=== PATIENT | male | born 1960 | race Caucasian/White ===

== ENCOUNTER 2022-02-08 16:20 | Emergency (ER) | payer MEDICARE ==
[2022-02-08] MEDS ORDERED: Sodium Chloride 0.9% 1000 ML 1,000 ML ONE (16:58)
[2022-02-08] MEDS ORDERED: Sodium Chloride 0.9% 1000 ML 1,000 ML IV SCH (17:00)
[2022-02-08 17:33] LABS: Absolute Neutrophil Ct (ANC) 2.04 x10^3/uL (1.4-6.9); Basophil (Absolute #) 0.04 x10^3/uL (0-0.4); Eosinophil % 5.5 % (0.00-5.0); Eosinophil (Absolute #) 0.18 x10^3/uL (0-0.5); Hematocrit 35.3 % (42-50); Lymphocyte (Absolute #) 0.62 x10^3/uL (1.0-4.6); Lymphocytes % 18.9 % (24.0-44.0); Mean Cell Volume 94.9 fL (78-100); Mean Corpuscular Hemoglobin 32.3 pg (26-32); Mean Platelet Volume 10.4 fL (7.5-11.0); Monocyte (Absolute #) 0.39 x10^3/uL (0.0-1.3); Monocytes % 11.9 % (0.0-12.0); Neutrophil % 62.2 % (36.0-66.0); Platelet Count 63 x10^3/uL (150-450); Red Blood Count 3.72 x10^6/uL (4.1-5.6); Red Cell Distribution Width 17.8 % (11.5-14.0); White Blood Count 3.3 x10^3/uL (4.0-10.5)
[2022-02-08 17:43] LABS: ALBUMIN 3.1 g/dL (3.5-5.0); ALKALINE PHOSPHATASE 153 U/L (38-126); ANION GAP 10.1 MEQ/L (5-15); BLOOD UREA NITROGEN 4 mg/dL (9-20); CHLORIDE 105 mmol/L (98-107); Calcium 8.6 mg/dL (8.4-10.2); Carbon Dioxide 23 mmol/L (22-30); Creatinine 1 0.53 mg/dL (0.66-1.25); EST GLOMERULAR FILTRATION RATE > 60.0 ML/MIN; Glucose 138 mg/dL (74-106); Potassium 3.5 mmol/L (3.5-5.1); SGOT/AST 48 U/L (17-59); SGPT/ALT 20 U/L (0-50); SODIUM 134 mmol/L (137-145); Total Protein 6.3 g/dL (6.3-8.2)
--- NOTE | 2022-02-08 17:43 | ERPHSYRPT ---
- History of Present Illness Time Seen by Provider: 02/08/22 16:23 Source: patient, EMS Exam Limitations: no limitations Patient Subjective Stated Complaint: Patient has no c/o. He denies any pain. Patient came from [facility] facility. [facility] staff report that patient has low sodium, low K+, and low BUN and is being sent to this hospital for evaluation. Triage Nursing Assessment: Patient is jaundiced. No SOB noted. Patient questioning why he needs to be at the hospital. Dressings noted to BUE; not removed at this time. Able to move BUE WNL without difficulties. Physician History: 61 years old male resident of residential with history of COPD, alcohol abuse, liver disease, hypertension, cardiomyopathy, GERD with esophagitis sent in ER for low potassium, sodium on lab work done yesterday. Potassium was 3.2 and so dium 129. Patient was recently admitted at [facility] with electrolyte abnormalities. Patient denies having any complaints. Denies any abdominal pain nausea vomiting diarrhea, chest pain palpitations or shortness of breath. Allergies/Adverse Reactions: codeine Allergy (Verified 02/08/22 16:28) Home Medications: Apixaban [Eliquis 2.5 mg Tablet] 1 tab PO BID 02/08/22 [History] Ascorbic Acid 500 mg [Vitamin C 500 MG] 1 tab PO DAILY 02/08/22 [History] Nestor/D3/Mag11/Zinc/Car Salesman/Bhavin/Bor [Caltrate 600+D Plus Tablet] 1 tab PO BID 02/08 [History] Folic Acid 1 tab PO DAILY 02/08/22 [History] L.acidoph,Paracasei, B.lactis [Probiotic] 1 cap PO DAILY 02/08/22 [History] Lactulose 15 ml PO TID 02/08/22 [History] Magnesium Oxide 400 mg [Mag-Ox 400] 1 tab PO DAILY 02/08/22 [History] Polyethylene Glycol 3350 17 gm [Miralax Powder 17GM PACKET] 17 g PO DAILY 02/08/22 [History] Potassium Chloride 20 meq PO BID 02/08/22 [History] Senna/Docusate Sodium Tab [Senokot-S Tablet] 1 tab PO BID 02/08/22 [History] Thiamine HCl 100 mg [Vitamin B-1 100 mg] 1 tab PO DAILY 02/08/22 [History] Hx Tetanus, Diphtheria Vaccination/Date Given: Yes Hx Influenza Vaccination/Date Given: Yes Hx Pneumococcal Vaccination/Date Given: Yes Immunizations Up to Date: Yes Travel Risk - International Travel Have you traveled outside of the country in past 3 weeks: No - Coronavirus Screening Are you exhibiting any of the following symptoms?: No Close contact with a COVID-19 positive Pt in past 14-21 Days: No - Vaccine Status Have you recieved a Covid-19 vaccination: Yes Vein Pumper: Unknown - Vaccination Dates Dates if Unknown: ? - Review of Systems Constitutional: No Symptoms Eyes: No Symptoms Ears, Nose, & Throat: No Symptoms Respiratory: Cough Cardiac: No Symptoms Abdominal/Gastrointestinal: No Symptoms Genitourinary Symptoms: No Symptoms Musculoskeletal: No Symptoms Skin: No Symptoms Neurological: No Symptoms Endocrine: No Symptoms Hematologic/Lymphatic: No Symptoms Immunological/Allergic: No Symptoms - Past Medical History Pertinent Past Medical History: Yes Cardiac History: Hypertension Respiratory History: COPD Musculoskeletal History: Fractures, Osteoarthritis GI Medical History: Cirrhosis, Esophageal Disorder, GERD Other Medical History: Right femur fracture, esophageal varices without bleeding, anemia, alcohol abuse, encephalopathy, cardiomyopathy, kidney failure - Past Surgical History Past Surgical History: Yes Musculoskeletal: Other - Social History Smoking Status: Current every day smoker How long have you smoked: "years" Exposure to second hand smoke: No Drug Use: none Patient Lives Alone: No ([facility]) - Nursing Vital Signs Nursing Vital Signs: Initial Vital Signs Temperature 97.6 F 02/08/22 16:30 Pulse Rate 60 02/08/22 16:30 Respiratory Rate 17 02/08/22 16:30 Blood Pressure 114/73 02/08/22 16:30 O2 Sat by Pulse Oximetry 100 02/08/22 16:30 Pain Scale Pain Intensity 3 - Physical Exam General Appearance: no apparent distress, alert Eye Exam: PERRL/EOMI Ears, Nose, Throat Exam: normal ENT inspection, pharynx normal Neck Exam: normal inspection, supple, full range of motion Respiratory Exam: normal breath sounds, lungs clear Cardiovascular Exam: regular rate/rhythm, normal heart sounds Gastrointestinal/Abdomen Exam: soft, normal bowel sounds, No tenderness Back Exam: normal inspection Extremity Exam: normal inspection, normal range of motion Neurologic Exam: alert, oriented x 3, cooperative, underliner II-XII nml as tested, normal mood/affect, sensation nml Skin Exam: normal color SpO2 Interpretation: normal SpO2: 100 O2 Delivery: Room Air - Course EKG Interpreted by Me: RATE ([id number]), Sinus Doe, NORMAL AXIS, NORMAL INTERVALS, NORMAL QRS Ordered Tests: Active Orders 24 hr Category Date Time Status Development Director STAT Care 02/08/22 16:34 Active EKG-ER Only STAT Care 02/08/22 16:32 Active IV Insertion STAT Care 02/08/22 16:32 Active CHEST 1 VIEW (PORTABLE) Stat Exams 02/08/22 16:33 Completed CBC W DIFF Stat Lab 02/08/22 16:32 Completed CMP Stat Lab 02/08/22 17:10 Completed MAG [MAGNESIUM] Stat Lab 02/08/22 17:10 Completed UA W/RFX CULTURE Stat Lab 02/08/22 Ordered Medication Summary Generic Name Dose Route Start Last Admin Trade Name Freq PRN Reason Stop Dose Admin Sodium Chloride 1,000 mls @ 100 mls/hr 02/08/22 17:00 02/08/22 17:01 Sodium Chloride 0.9% 1000 Ml IV 03/10/22 16:59 100 mls/hr .Q10H CONY Administration Lab/Rad Data: Laboratory Result Diagrams 02/08/22 16:32 02/08/22 17:10 Laboratory Results 02/08/22 02/08/22 02/08/22 Range/Units 17:10 17:10 16:32 WBC 3.3 L (4.0-10.5) x10^3/uL RBC 3.72 L (4.1-5.6) x10^6/uL Hgb 12.0 L (12.5-18.0) g/dL Hct 35.3 L (42-50) % MCV 94.9 (78-100) fL MCH 32.3 H (26-32) pg MCHC 34.0 (32-36) g/dL RDW 17.8 H (11.5-14.0) % Plt Count 63 L D (150-450) x10^3/uL MPV 10.4 (7.5-11.0) fL Gran % 62.2 (36.0-66.0) % Immature Gran % (Auto) 0.3 (0.00-0.4) % Nucleat RBC Rel Count 0.0 (0.00-0.1) % Eos # (Auto) 0.18 (0-0.5) x10^3/uL Immature Gran # (Auto) 0.01 (0.00-0.03) x10^3u/L Absolute Lymphs (auto) 0.62 L (1.0-4.6) x10^3/uL Absolute Monos (auto) 0.39 (0.0-1.3) x10^3/uL Absolute Nucleated RBC 0.00 (0.00-0.01) x10^3u/L Lymphocytes % 18.9 L (24.0-44.0) % Monocytes % 11.9 (0.0-12.0) % Eosinophils % 5.5 H (0.00-5.0) % Basophils % 1.2 (0.0-0.4) % Absolute Granulocytes 2.04 (1.4-6.9) x10^3/uL Basophils # 0.04 (0-0.4) x10^3/uL Sodium 134 L (137-145) mmol/L Potassium 3.5 (3.5-5.1) mmol/L Chloride 105 (98-107) mmol/L Carbon Dioxide 23 (22-30) mmol/L Anion Gap 10.1 (5-15) MEQ/L BUN 4 L (9-20) mg/dL Creatinine 0.53 L (0.66-1.25) mg/dL Estimated GFR > 60.0 ML/MIN Glucose 138 H (74-106) mg/dL Calcium 8.6 (8.4-10.2) mg/dL Magnesium 1.7 (1.6-2.3) mg/dL Total Bilirubin 3.70 H (0.2-1.3) mg/dL AST 48 (17-59) U/L ALT 20 (0-50) U/L Alkaline Phosphatase 153 H (38-126) U/L Serum Total Protein 6.3 (6.3-8.2) g/dL Albumin 3.1 L (3.5-5.0) g/dL - Progress Progress: re-examined Progress Note: 02/08/22 19:06 Patient remained asymptomatic throughout stay in the ER. Has a potassium of 3.5 which is improved and also sodium of 134 which is improved from 129 yesterday. White count is 3.3 which is low but improving as compared to 2.0 yesterday. Chest x-ray negative for any acute cardiopulmonary findings. EKG normal sinus with no ST elevation. Patient is not in any distress and denies any complaint. Is being sent back to residential 02/08/22 19:07 Counseled pt/family regarding: lab results, diagnosis, need for follow-up, rad results - Departure Departure Disposition: Home Clinical Impression: Electrolyte imbalance risk Condition: Stable Critical Care Time: No Referrals: DOCTOR,NO FAMILY [Primary Care Provider] - Follow up/PCP as directed Instructions: Dehydration, Adult (DC), Hypokalemia (DC) Additional Instructions: Follow-up with your primary care for reevaluation early next week. Keep yourself well-hydrated. Do not smoke. Continue with current medications. Return to ER for any worsening.
--- NOTE | 2022-02-08 17:47 | XRAY ---
Indication: Hypokalemia. Comparison: None Portable chest demonstrates COPD and incidental bilateral calcified granulomas. No focal infiltrate, consolidation, or large effusion. Heart not enlarged. Bony thorax intact with osteopenia, degenerative changes, old bilateral rib fractures, and right axillary hakeem dissection. Impression: Nonacute chest with chronic features.
[2022-02-08 19:28] VITALS: BP 125/86
[2022-02-08 20:02] LABS: Slide Review 1 YES
[2022-02-08 20:30] VITALS: PULSE 60; O2SAT 99
== END 2022-02-08 20:30 | disposition home or self-care (01) ==
LOC: ED 16:20
DX: E87.6 Hypokalemia (principal); E87.1 Hypo-osmolality and hyponatremia; J44.9 Chronic obstructive pulmonary disease, unspecified; I10 Essential (primary) hypertension; Z72.0 Tobacco use; Z79.01 Long term (current) use of anticoagulants; Z79.899 Other long term (current) drug therapy
CPT/HCPCS: 36000; 36415; 71045; 80053; 83735; 85025; 93005; 93041; 99284

== ENCOUNTER 2023-07-01 14:41 | Observation (INO) | payer MEDICARE ==
[2023-07-01] MEDS ORDERED: Sterile H2O 10 ml IJ ONE ×2 (15:03→21:50)
[2023-07-01] MEDS ORDERED: solu-MEDROL ONE ×2 (15:03→21:49)
[2023-07-01] MEDS ORDERED: DUONEB 0.5-3 MG/3 ml Neb IH ONE (15:04)
[2023-07-01] MEDS: solu-MEDROL 125 MG, Sterile H2O 10 ml 2 ML IV ONE (15:04)
[2023-07-01] MEDS: DUONEB 0.5-3 MG/3 ml Neb IH ONE (15:05)
[2023-07-01 15:28] LABS: Absolute Neutrophil Ct (ANC) 3.03 x10^3/uL (1.4-6.9); BASOPHIL % 0.3 % (0.0-0.4); Basophil (Absolute #) 0.01 x10^3/uL (0-0.4); Eosinophil (Absolute #) 0.04 x10^3/uL (0-0.5); Hematocrit 36.8 % (42-50); Hemoglobin 12.1 g/dL (12.5-18.0); IMMATURE GRAN # 0.02 x10^3u/L (0.00-0.03); IMMATURE GRAN % 0.5 % (0.00-0.4); Lymphocyte (Absolute #) 0.49 x10^3/uL (1.0-4.6); Lymphocytes % 12.3 % (24.0-44.0); Mean Cell Volume 93.4 fL (78-100); Mean Corpuscular Hemoglobin 30.7 pg (26-32); Mean Corpuscular Hgb Concent. 32.9 g/dL (32-36); Mean Platelet Volume 13.2 fL (7.5-11.0); Monocyte (Absolute #) 0.41 x10^3/uL (0.0-1.3); Monocytes % 10.3 % (0.0-12.0); Neutrophil % 75.6 % (36.0-66.0); Platelet Count 52 x10^3/uL (150-450); Red Blood Count 3.94 x10^6/uL (4.1-5.6); Red Cell Distribution Width 15.4 % (11.5-14.0)
[2023-07-01 15:43] LABS: ALBUMIN 3.7 g/dL (3.5-5.0); ANION GAP 12.9 MEQ/L (5-15); BILIRUBIN,TOTAL 2.2 mg/dL (0.2-1.3); Calcium 8.6 mg/dL (8.4-10.2); Creatinine 1 0.76 mg/dL (0.66-1.25); MAGNESIUM 1.7 mg/dL (1.6-2.3); Potassium 3.6 mmol/L (3.5-5.1)
[2023-07-01 16:04] LABS: Slide Review 1 YES
[2023-07-01 16:05] LABS: INFLUENZA B NEGATIVE (NEGATIVE); RESPIRATORY SYNCTIAL VIRUS NEGATIVE (NEGATIVE); SARS-CoV-2 Xpert Express NEGATIVE (NEGATIVE)
[2023-07-01 16:15] LABS: INFLUENZA A POSITIVE (NEGATIVE)
--- NOTE | 2023-07-01 16:21 | ERPHSYRPT ---
- History of Present Illness Time Seen by Provider: 07/01/23 15:00 Source: patient Exam Limitations: no limitations Patient Subjective Stated Complaint: Pt states "I have been coughing and short of breath for the past 4 days, I have been cold for the past three days and I have these spots on my arms and I was told I have cancer on my skin. Triage Nursing Assessment: Pt presented alert and oriented X 3, skin pwd. pt ambualtes with an upright steady gait, able to speak in clear full sentences. PT resting comfortably on the bed. Physician History: 62-year-old male presents to our ED with complaints of shortness of breath and a cough x 4 days. Patient has history of COPD. Patient states he has been feeling cold lately as well. No fever. No nausea or vomiting no rash no diarrhea. Patient states he has a history of skin cancer. Patient had a biopsy of his left dorsal forearm about a year ago. Patient states the wound is not healing as expected. Patient never followed up to find out the results. Per report patient has a history of alcoholism and alcoholic cirrhosis. Patient symptoms are mild to moderate in intensity. Activity worsens symptoms. Symptoms improved with rest. Patient is here with his niece. She reports that patient is homeless and she is currently housing and caring for him. Portions of this note were created with voice recognition technology. There may be grammatical, spelling, punctuation or sound alike errors Timing/Duration: day(s) (4 days) Activities at Onset: none Severity of Dyspnea-Max: moderate Severity of Dyspnea-Current: mild Possible Cause: no prior episodes Modifying Factors: Improves With: activity Associated Symptoms: cough, No chest pain/discomfort, No fever, No loss of appetite Allergies/Adverse Reactions: codeine Allergy (Verified 02/08/22 16:28) Home Medications: No Reportable Medications [No Reported Medications] 07/01/23 [History] Hx Tetanus, Diphtheria Vaccination/Date Given: No Hx Influenza Vaccination/Date Given: No Hx Pneumococcal Vaccination/Date Given: Yes Immunizations Up to Date: No Travel Risk - International Travel Have you traveled outside of the country in past 3 weeks: No - Coronavirus Screening Are you exhibiting any of the following symptoms?: Yes Symptoms: Cough: New Onset, Shortness of Breath Close contact with a COVID-19 positive Pt in past 14-21 Days: No - Vaccine Status Have you recieved a Covid-19 vaccination: Yes Field Geologist: Unknown - Vaccination Dates Dates if Unknown: ? - Review of Systems Constitutional: No Symptoms, No Fever, No Chills Eyes: No Symptoms Ears, Nose, & Throat: No Symptoms Respiratory: No Symptoms, No Cough, No Dyspnea Cardiac: No Symptoms, No Chest Pain, No Edema, No Syncope Abdominal/Gastrointestinal: No Symptoms, No Abdominal Pain, No Nausea, No Vomiting, No Diarrhea Genitourinary Symptoms: No Symptoms, No Dysuria Musculoskeletal: No Symptoms, No Back Pain, No Neck Pain Skin: No Rash Neurological: No Symptoms, No Dizziness, No Focal Weakness, No Sensory Changes Psychological: No Symptoms Endocrine: No Symptoms Hematologic/Lymphatic: No Symptoms Immunological/Allergic: No Symptoms All Other Systems: Reviewed and Negative - Past Medical History Pertinent Past Medical History: Yes Neurological History: No Pertinent History ENT History: No Pertinent History Cardiac History: Hypertension Respiratory History: COPD Endocrine Medical History: No Pertinent History Musculoskeletal History: Fibromyalgia, Fractures, Osteoarthritis GI Medical History: Cirrhosis, Esophageal Disorder, GERD Other Medical History: Right femur fracture, esophageal varices without bleeding, anemia, alcohol abuse, encephalopathy, cardiomyopathy, kidney failure - Past Surgical History Past Surgical History: Yes Musculoskeletal: Other Other Surgical History: skin cancer cut off. right hop surgery - Social History Smoking Status: Current every day smoker How long have you smoked: "years" Exposure to second hand smoke: No Drug Use: none Patient Lives Alone: No ([facility]) - Nursing Vital Signs Nursing Vital Signs: Initial Vital Signs Temperature 98.8 F 07/01/23 14:42 Pulse Rate 68 07/01/23 14:42 Respiratory Rate 24 07/01/23 14:42 Blood Pressure 140/69 07/01/23 14:42 O2 Sat by Pulse Oximetry 96 07/01/23 14:42 Pain Scale Pain Intensity 0 - Physical Exam General Appearance: no apparent distress, alert Eye Exam: PERRL/EOMI Ears, Nose, Throat Exam: normal ENT inspection, normal pharynx Neck Exam: normal inspection, supple Respiratory Exam: diminished breath sounds, rhonchi, wheezing Cardiovascular/Chest Exam: normal heart sounds, regular rate/rhythm Abdominal/Gastrointestinal Exam: soft, No tenderness, No distention, No mass Extremity Exam: non-tender, normal range of motion, normal inspection, no calf tenderness, no pedal edema Neurologic Exam: alert, oriented x 3, cooperative, system safety manager II-XII nml as tested, sensation nml, No motor deficits Skin Exam: normal color, warm, No dry Lymphatic Exam: No adenopathy SpO2 Interpretation: normal SpO2: 96 O2 Delivery: Room Air - Course Nursing assessment & vital signs reviewed: Yes EKG Interpreted by Me: RATE ([id number]), Sinus Rhythm, NORMAL AXIS, NORMAL INTERVALS - CT Exams Chest CT Interpretation: Tele-radiologist Report (No comps negative PE. Emphysema and old granulomatous disease. No acute appearing T7-T9 fractures and old T12 fracture. Cirrhotic liver and 15.8 cm splenomegaly) Ordered Tests: Active Orders 24 hr Category Date Time Status Hiv Nurse STAT Care 07/01/23 14:58 Active EKG-ER Only STAT Care 07/01/23 14:57 Active IV Insertion STAT Care 07/01/23 14:57 Active Pulse Oximetry (ED) STAT Care 07/01/23 14:57 Active CHEST WITH CONTRAST [CT] Stat Exams 07/01/23 15:58 Taken BLOOD CULTURE Stat Lab 07/01/23 15:20 Received CBC W DIFF Stat Lab 07/01/23 15:12 Completed CMP Stat Lab 07/01/23 15:12 Completed CULTURE,URINE Stat Lab 07/01/23 17:57 Received D-DIMER QUANTITATIVE Stat Lab 07/01/23 15:12 Completed MAGNESIUM Stat Lab 07/01/23 15:12 Completed TROPONIN Q4H Lab 07/01/23 15:12 Completed TROPONIN Q4H Lab 07/01/23 19:00 Received TROPONIN Q4H Lab 07/01/23 23:00 Ordered UA W/RFX UR CULTURE Stat Lab 07/01/23 17:57 Completed Respiratory Therapy Assessment DAILY RT 07/01/23 15:08 Active Transfer Order Routine Transfer 07/01/23 Ordered Medication Summary Discontinued Medications Generic Name Dose Route Start Last Admin Trade Name Freq PRN Reason Stop Dose Admin Albuterol/Ipratropium 3 ml 07/01/23 14:59 07/01/23 15:05 Ipratropium/Albuterol Sulfate 3 Ml Ampul.Neb IH 07/01/23 15:00 3 ml STAT ONE Administration Albuterol/Ipratropium Confirm 07/01/23 15:04 Ipratropium/Albuterol Sulfate 3 Ml Ampul.Neb Administered 07/01/23 15:05 Dose 3 ml IH .STK-MED ONE Methylprednisolone Sodium 0 mg 07/01/23 14:59 07/01/23 15:04 Succinate 125 mg/ Sterile IV 07/01/23 15:00 125 mg Water 2 ml STAT ONE Administration Ceftriaxone Sodium/Dextrose 2 g in 50 mls @ 100 mls/hr 07/01/23 16:24 07/01/23 17:08 Rocephin 2 Gm-D5w 50ml Bag IV 07/01/23 16:53 Infused STAT STA Infusion Azithromycin 500 mg in 250 mls @ 250 mls/hr 07/01/23 16:24 07/01/23 18:44 Zithromax 500 Mg/ 250 Ml Nacl Premix IV 07/01/23 17:23 Infused STAT STA Infusion Ceftriaxone Sodium/Dextrose Confirm 07/01/23 16:37 Rocephin 2 Gm-D5w 50ml Bag Administered 07/01/23 16:38 Dose 2 g in 50 mls @ ud IV .STK-MED ONE Azithromycin Confirm 07/01/23 17:41 Zithromax 500 Mg/ 250 Ml Nacl Premix Administered 07/01/23 17:42 Dose 500 mg in 250 mls @ ud IV .STK-MED ONE Methylprednisolone Sodium Succinate Confirm 07/01/23 15:03 Methylprednis Sod Succ 125 Mg/2 Ml Vial Administered 07/01/23 15:04 Dose 125 mg .ROUTE .STK-MED ONE Sterile Water Confirm 07/01/23 15:03 Water For Injection,Sterile 10 Ml Vial Administered 07/01/23 15:04 Dose 10 ml IJ .STK-MED ONE Lab/Rad Data: Laboratory Result Diagrams 07/01/23 15:12 07/01/23 15:12 Laboratory Results 07/01/23 07/01/23 07/01/23 Range/Units 17:57 15:22 15:12 WBC (4.0-10.5) x10^3/uL RBC (4.1-5.6) x10^6/uL Hgb (12.5-18.0) g/dL Hct (42-50) % MCV (78-100) fL MCH (26-32) pg MCHC (32-36) g/dL RDW (11.5-14.0) % Plt Count (150-450) x10^3/uL MPV (7.5-11.0) fL Gran % (36.0-66.0) % Immature Gran % (Auto) (0.00-0.4) % Nucleat RBC Rel Count (0.00-0.1) % Eos # (Auto) (0-0.5) x10^3/uL Immature Gran # (Auto) (0.00-0.03) x10^3u/L Absolute Lymphs (auto) (1.0-4.6) x10^3/uL Absolute Monos (auto) (0.0-1.3) x10^3/uL Absolute Nucleated RBC (0.00-0.01) x10^3u/L Lymphocytes % (24.0-44.0) % Monocytes % (0.0-12.0) % Eosinophils % (0.00-5.0) % Basophils % (0.0-0.4) % Absolute Granulocytes (1.4-6.9) x10^3/uL Basophils # (0-0.4) x10^3/uL D-Dimer (0.0-0.50) mg/L Sodium (137-145) mmol/L Potassium (3.5-5.1) mmol/L Chloride (98-107) mmol/L Carbon Dioxide (22-30) mmol/L Anion Gap (5-15) MEQ/L BUN (9-20) mg/dL Creatinine (0.66-1.25) mg/dL Estimated GFR ML/MIN Glucose (74-106) mg/dL Calcium (8.4-10.2) mg/dL Magnesium (1.6-2.3) mg/dL Total Bilirubin (0.2-1.3) mg/dL AST (17-59) U/L ALT (0-50) U/L Alkaline Phosphatase (38-126) U/L Troponin I < 0.012 (0.000-0.034) ng/mL Serum Total Protein (6.3-8.2) g/dL Albumin (3.5-5.0) g/dL Urine Color Dark Yellow (Yellow) Urine Appearance Clear (Clear) Urine pH 6.0 (4.6-8.0) Ur Specific [place] 1.025 (1.005-1.030) Urine Protein 300 A (Negative) Urine Glucose (UA) Negative (Negative) mg/dL Urine Ketones Trace A (Negative) Urine Blood Moderate A (Negative) Urine Nitrite Negative (Negative) Urine Bilirubin Negative (Negative) Urine Urobilinogen 1.0 A (0.2) mg/dL Ur Leukocyte Esterase Negative (Negative) U Hyaline Cast (Auto) NONE SEEN (0-2) /LPF Urine Microscopic RBC 21-50 A (0-5) /HPF Urine Microscopic WBC 0-2 (0-5) /HPF Ur Epithelial Cells None Seen (None Seen) /HPF Urine Bacteria None Seen (None Seen) /HPF Urine Culture Reflexed YES (NO) Influenza Type A Ag POSITIVE A (NEGATIVE) Influenza Type B Ag NEGATIVE (NEGATIVE) RSV (PCR) NEGATIVE (NEGATIVE) SARS-CoV-2 (PCR) NEGATIVE (NEGATIVE) Slides for Path Review 07/01/23 07/01/23 07/01/23 Range/Units 15:12 15:12 15:12 WBC 4.0 (4.0-10.5) x10^3/uL RBC 3.94 L (4.1-5.6) x10^6/uL Hgb 12.1 L (12.5-18.0) g/dL Hct 36.8 L (42-50) % MCV 93.4 (78-100) fL MCH 30.7 (26-32) pg MCHC 32.9 (32-36) g/dL RDW 15.4 H (11.5-14.0) % Plt Count 52 L (150-450) x10^3/uL MPV 13.2 H (7.5-11.0) fL Gran % 75.6 H (36.0-66.0) % Immature Gran % (Auto) 0.5 H (0.00-0.4) % Nucleat RBC Rel Count 0.0 (0.00-0.1) % Eos # (Auto) 0.04 (0-0.5) x10^3/uL Immature Gran # (Auto) 0.02 (0.00-0.03) x10^3u/L Absolute Lymphs (auto) 0.49 L (1.0-4.6) x10^3/uL Absolute Monos (auto) 0.41 (0.0-1.3) x10^3/uL Absolute Nucleated RBC 0.00 (0.00-0.01) x10^3u/L Lymphocytes % 12.3 L (24.0-44.0) % Monocytes % 10.3 (0.0-12.0) % Eosinophils % 1.0 (0.00-5.0) % Basophils % 0.3 (0.0-0.4) % Absolute Granulocytes 3.03 (1.4-6.9) x10^3/uL Basophils # 0.01 (0-0.4) x10^3/uL D-Dimer 7.67 H* (0.0-0.50) mg/L Sodium 135 L (137-145) mmol/L Potassium 3.6 (3.5-5.1) mmol/L Chloride 110 H (98-107) mmol/L Carbon Dioxide 16 L* (22-30) mmol/L Anion Gap 12.9 (5-15) MEQ/L BUN 9 (9-20) mg/dL Creatinine 0.76 (0.66-1.25) mg/dL Estimated GFR 101.0 ML/MIN Glucose 87 (74-106) mg/dL Calcium 8.6 (8.4-10.2) mg/dL Magnesium 1.7 (1.6-2.3) mg/dL Total Bilirubin 2.20 H (0.2-1.3) mg/dL AST 37 (17-59) U/L ALT 17 (0-50) U/L Alkaline Phosphatase 99 (38-126) U/L Troponin I (0.000-0.034) ng/mL Serum Total Protein 7.0 (6.3-8.2) g/dL Albumin 3.7 (3.5-5.0) g/dL Urine Color (Yellow) Urine Appearance (Clear) Urine pH (4.6-8.0) Ur Specific [place] (1.005-1.030) Urine Protein (Negative) Urine Glucose (UA) (Negative) mg/dL Urine Ketones (Negative) Urine Blood (Negative) Urine Nitrite (Negative) Urine Bilirubin (Negative) Urine Urobilinogen (0.2) mg/dL Ur Leukocyte Esterase (Negative) U Hyaline Cast (Auto) (0-2) /LPF Urine Microscopic RBC (0-5) /HPF Urine Microscopic WBC (0-5) /HPF Ur Epithelial Cells (None Seen) /HPF Urine Bacteria (None Seen) /HPF Urine Culture Reflexed (NO) Influenza Type A Ag (NEGATIVE) Influenza Type B Ag (NEGATIVE) RSV (PCR) (NEGATIVE) SARS-CoV-2 (PCR) (NEGATIVE) Slides for Path Review YES - Progress Progress: improved Air Movement: good Progress Note: 62-year-old male with a history of COPD, alcoholic liver cirrhosis drinks vodka daily presents to our ED for evaluation of shortness of breath and cold chills. Physical exam reveals diminished, coarse breath sounds with wheezing; additionally patient had a biopsy of the dorsal aspect of his left arm 1 year ago. There is still a residual wound that tends to bleed. Patient never followed up regarding the results of this biopsy. Patient does not recall the doctor's name to perform the biopsy. Patient's niece is at the bedside. She reports that patient is homeless and she is currently helping him with this situation. 07/01/23 19:04 Workup reveals a thrombocytopenia, elevated total bili urinalysis reveals a proteinuria and hematuria. Viral panel of reveals influenza A. D-dimer positive CTA chest negative for PE. Case discussed with Dr. Stewart who accepts admission at 6:48 PM. Plan of care discussed with patient. He agrees to admission to [facility] for further evaluation and treatment. Portions of this note were created with voice recognition technology. There may be grammatical, spelling, punctuation or sound alike errors Complexity problem addressed is moderate acute complicated No critical care time Complex of data reviewed and analyzed is extensive. Test ordered test reviewed. Results analyzed and correlated clinically with history and physical examination. Management discussed with hospitalist accepts patient to observation Risk of complication and a risk morbidity/mortality of patient management is high. Patient requires hospitalization for further evaluation and treatment. Vital stable. Time spent to admit patient is approximately 30 minutes. Plan of care established for shared decision making. No social determinants of health present impede follow-up. Portions of this note were created with voice recognition technology. There may be grammatical, spelling, punctuation or sound alike errors 07/01/23 19:08 Blood Culture(s) Obtained: Yes Antibiotics given: Yes Discussed with Dr.: Serrano (Case discussed with Dr. Vilchis at 6:48 PM.) Counseled pt/family regarding: lab results, diagnosis - Departure Departure Disposition: Observation Clinical Impression: Influenza A, T7-T9 fracture, Splenomegaly, Cirrhotic liver, Emphysema lung, COPD exacerbation, Shortness of breath Condition: Stable Critical Care Time: No Referrals: RADHA APONTE MD [Primary Care Provider] - Follow up/PCP as directed Instructions: Chronic Obstructive Pulmonary Disease
[2023-07-01] MEDS ORDERED: ROCEPHIN 2 Gm-D5w 50ML BAG** 2 G/50 ML IVPB IV ONE (16:37)
[2023-07-01] MEDS: ROCEPHIN 2 Gm-D5w 50ML BAG** 2 G/50 ML IVPB IV STA (16:37)
[2023-07-01] MEDS ORDERED: Zithromax 500 MG/ 250 ML NaCl Premix 500 MG/250 ML IVPB IV ONE (17:41)
[2023-07-01] MEDS: Zithromax 500 MG/ 250 ML NaCl Premix 500 MG/250 ML IVPB IV STA (17:42)
[2023-07-01 18:13] LABS: Appearance Clear (Clear); Bacteria None Seen /HPF (None Seen); Bilirubin Negative (Negative); Blood Moderate (Negative); Epithelial Cells None Seen /HPF (None Seen); Glucose, Urine Negative (Negative); Hyaline Casts NONE SEEN /LPF (0-2); Ketones Trace (Negative); Leukocyte Esterase Negative (Negative); Nitrite Negative (Negative); Protein,Urine Dip 300 (Negative); RBC 21-50 /HPF (0-5); Specific Gravity 1.025 (1.005-1.030); WBC 0-2 /HPF (0-5)
[2023-07-01 18:14] LABS: ADD URINE CULTURE? YES (NO)
[2023-07-01] MEDS ORDERED: Ativan 2 MG/1 ML VIAL IV PRN (20:46)
[2023-07-01] MEDS ORDERED: Ativan 1 MG PO PRN ×2 (20:46)
--- NOTE | 2023-07-01 20:57 | PCM.HP ---
History of Present Illness - Chief Complaint Chief Complaint: COPD exacerbation, thoracic spine fractures History of Present Illness: Mr. Mckeon is a 62 year old male with a past medical history significant for significant EtOH use (about half a pint a day) with cirrhosis, COPD and hypertension who presents to the hospital with complaints of fever, chills and not feeling well for about four days. He reports poor appetite, has not been eating/drinking well and was found to be positive for influenza in the ER. He has been recommended for admission. He is currently resting in bed, awake/alert. No chest pain or shortness of breath. No productive cough. Initial labs were notable for a sodium of 135 and bicarb 16. - Review of Systems Constitutional: Fatigue, Lethargy, Malaise, No Fever, No Chills Eyes: No Vision Changes Ears, Nose, & Throat: No Nose Discharge, No Sinus Drainage Respiratory: Cough, Wheezing, No Orthopnea Cardiac: No Chest Pain, No Edema, No Palpitations Abdominal/Gastrointestinal: Appetite Changes, No Abdominal Pain, No Nausea, No Vomiting, No Diarrhea Genitourinary Symptoms: No Dysuria, No Frequency, No Hematuria Musculoskeletal: No Arthralgias, No Back Pain, No Neck Pain Skin: No Rash Neurological: No Dizziness, No Focal Weakness Psychological: Alcohol Abuse Endocrine: No Polyuria, No Polydipsia Hematologic/Lymphatic: No Anemia, No Blood Clots Medications & Allergies Home Medications: Home Medication List No Reportable Medications [No Reported Medications] 07/01/23 [History Confirmed 07/01/23] Allergies/Adverse Reactions: Allergies Allergy/AdvReac Type Severity Reaction Status Date / Time codeine Allergy Verified 07/01/23 19:54 - Past Medical History Past Medical History: Yes Neurological History: No Pertinent History ENT History: No Pertinent History Cardiac History: Hypertension Respiratory History: COPD Endocrine Medical History: No Pertinent History Musculoskelatal History: Fibromyalgia, Fractures, Osteoarthritis GI Medical History: Cirrhosis, Esophageal Disorder, GERD Comment: Right femur fracture, esophageal varices without bleeding, anemia, alcohol abuse, encephalopathy, cardiomyopathy, kidney failure, skin cancer - Past Surgical History Past Surgical History: Yes Neuro Surgical History: No Pertinent History Cardiac History: No Pertinent History Respiratory Surgery: No Pertinent History GI Surgical History: No Pertinent History Genitourinary Surgical Hx: No Pertinent History Musculskeletal Surgical Hx: Other Male Surgical History: No Pertinent History Other Surgical History: skin cancer cut off. right hip surgery - Social History Smoking Status: Current every day smoker How long have you smoked: 40 years Exposure to second hand smoke: No Alcohol: Daily Drug Use: none - Physical Exam Vital Signs: Vital Signs - 24 hr Temp Pulse Resp BP BP Pulse Ox 07/01/23 20:03 97.3 F 68 18 151/74 96 07/01/23 19:17 96 07/01/23 19:01 70 20 106/54 96 07/01/23 18:45 72 15 129/72 95 07/01/23 18:30 72 25 H 129/76 96 07/01/23 18:15 71 20 124/67 96 07/01/23 18:00 75 24 130/69 96 07/01/23 17:47 78 22 145/73 97 07/01/23 17:00 85 128/67 07/01/23 16:45 70 23 125/66 95 07/01/23 16:30 81 28 H 126/64 97 07/01/23 16:15 77 26 H 110/74 94 L 07/01/23 16:00 74 31 H 119/77 96 07/01/23 15:45 82 29 H 127/59 97 07/01/23 15:30 74 24 115/86 97 07/01/23 15:08 68 19 97 07/01/23 15:02 98 07/01/23 15:00 73 28 H 128/64 96 07/01/23 14:45 61 20 134/71 95 07/01/23 14:42 98.8 F 68 24 140/69 98 General Appearance: no apparent distress Neurologic Exam: alert Neck Exam: supple, full range of motion Respiratory Exam: No respiratory distress, No wheezing, No stridor Cardiovascular Exam: regular rate/rhythm Gastrointestinal/Abdomen Exam: soft Extremity Exam: No pedal edema, No swelling, No tenderness Skin Exam: No dry, No rash Results - Labs Lab/Micro Results: Lab Results-Last 24 Hours 07/01/23 07/01/23 07/01/23 Range/Units 15:12 15:12 15:12 WBC 4.0 (4.0-10.5) x10^3/uL RBC 3.94 L (4.1-5.6) x10^6/uL Hgb 12.1 L (12.5-18.0) g/dL Hct 36.8 L (42-50) % MCV 93.4 (78-100) fL MCH 30.7 (26-32) pg MCHC 32.9 (32-36) g/dL RDW 15.4 H (11.5-14.0) % Plt Count 52 L (150-450) x10^3/uL MPV 13.2 H (7.5-11.0) fL Gran % 75.6 H (36.0-66.0) % Immature Gran % (Auto) 0.5 H (0.00-0.4) % Nucleat RBC Rel Count 0.0 (0.00-0.1) % Eos # (Auto) 0.04 (0-0.5) x10^3/uL Immature Gran # (Auto) 0.02 (0.00-0.03) x10^3u/L Absolute Lymphs (auto) 0.49 L (1.0-4.6) x10^3/uL Absolute Monos (auto) 0.41 (0.0-1.3) x10^3/uL Absolute Nucleated RBC 0.00 (0.00-0.01) x10^3u/L Lymphocytes % 12.3 L (24.0-44.0) % Monocytes % 10.3 (0.0-12.0) % Eosinophils % 1.0 (0.00-5.0) % Basophils % 0.3 (0.0-0.4) % Absolute Granulocytes 3.03 (1.4-6.9) x10^3/uL Basophils # 0.01 (0-0.4) x10^3/uL D-Dimer 7.67 H* (0.0-0.50) mg/L Sodium 135 L (137-145) mmol/L Potassium 3.6 (3.5-5.1) mmol/L Chloride 110 H (98-107) mmol/L Carbon Dioxide 16 L* (22-30) mmol/L Anion Gap 12.9 (5-15) MEQ/L BUN 9 (9-20) mg/dL Creatinine 0.76 (0.66-1.25) mg/dL Estimated GFR 101.0 ML/MIN Glucose 87 (74-106) mg/dL Calcium 8.6 (8.4-10.2) mg/dL Magnesium 1.7 (1.6-2.3) mg/dL Total Bilirubin 2.20 H (0.2-1.3) mg/dL AST 37 (17-59) U/L ALT 17 (0-50) U/L Alkaline Phosphatase 99 (38-126) U/L Troponin I (0.000-0.034) ng/mL Serum Total Protein 7.0 (6.3-8.2) g/dL Albumin 3.7 (3.5-5.0) g/dL Urine Color (Yellow) Urine Appearance (Clear) Urine pH (4.6-8.0) Ur Specific [place] (1.005-1.030) Urine Protein (Negative) Urine Glucose (UA) (Negative) mg/dL Urine Ketones (Negative) Urine Blood (Negative) Urine Nitrite (Negative) Urine Bilirubin (Negative) Urine Urobilinogen (0.2) mg/dL Ur Leukocyte Esterase (Negative) U Hyaline Cast (Auto) (0-2) /LPF Urine Microscopic RBC (0-5) /HPF Urine Microscopic WBC (0-5) /HPF Ur Epithelial Cells (None Seen) /HPF Urine Bacteria (None Seen) /HPF Urine Culture Reflexed (NO) Influenza Type A Ag (NEGATIVE) Influenza Type B Ag (NEGATIVE) RSV (PCR) (NEGATIVE) SARS-CoV-2 (PCR) (NEGATIVE) Slides for Path Review YES 07/01/23 07/01/23 07/01/23 Range/Units 15:12 15:22 17:57 WBC (4.0-10.5) x10^3/uL RBC (4.1-5.6) x10^6/uL Hgb (12.5-18.0) g/dL Hct (42-50) % MCV (78-100) fL MCH (26-32) pg MCHC (32-36) g/dL RDW (11.5-14.0) % Plt Count (150-450) x10^3/uL MPV (7.5-11.0) fL Gran % (36.0-66.0) % Immature Gran % (Auto) (0.00-0.4) % Nucleat RBC Rel Count (0.00-0.1) % Eos # (Auto) (0-0.5) x10^3/uL Immature Gran # (Auto) (0.00-0.03) x10^3u/L Absolute Lymphs (auto) (1.0-4.6) x10^3/uL Absolute Monos (auto) (0.0-1.3) x10^3/uL Absolute Nucleated RBC (0.00-0.01) x10^3u/L Lymphocytes % (24.0-44.0) % Monocytes % (0.0-12.0) % Eosinophils % (0.00-5.0) % Basophils % (0.0-0.4) % Absolute Granulocytes (1.4-6.9) x10^3/uL Basophils # (0-0.4) x10^3/uL D-Dimer (0.0-0.50) mg/L Sodium (137-145) mmol/L Potassium (3.5-5.1) mmol/L Chloride (98-107) mmol/L Carbon Dioxide (22-30) mmol/L Anion Gap (5-15) MEQ/L BUN (9-20) mg/dL Creatinine (0.66-1.25) mg/dL Estimated GFR ML/MIN Glucose (74-106) mg/dL Calcium (8.4-10.2) mg/dL Magnesium (1.6-2.3) mg/dL Total Bilirubin (0.2-1.3) mg/dL AST (17-59) U/L ALT (0-50) U/L Alkaline Phosphatase (38-126) U/L Troponin I < 0.012 (0.000-0.034) ng/mL Serum Total Protein (6.3-8.2) g/dL Albumin (3.5-5.0) g/dL Urine Color Dark Yellow (Yellow) Urine Appearance Clear (Clear) Urine pH 6.0 (4.6-8.0) Ur Specific [place] 1.025 (1.005-1.030) Urine Protein 300 A (Negative) Urine Glucose (UA) Negative (Negative) mg/dL Urine Ketones Trace A (Negative) Urine Blood Moderate A (Negative) Urine Nitrite Negative (Negative) Urine Bilirubin Negative (Negative) Urine Urobilinogen 1.0 A (0.2) mg/dL Ur Leukocyte Esterase Negative (Negative) U Hyaline Cast (Auto) NONE SEEN (0-2) /LPF Urine Microscopic RBC 21-50 A (0-5) /HPF Urine Microscopic WBC 0-2 (0-5) /HPF Ur Epithelial Cells None Seen (None Seen) /HPF Urine Bacteria None Seen (None Seen) /HPF Urine Culture Reflexed YES (NO) Influenza Type A Ag POSITIVE A (NEGATIVE) Influenza Type B Ag NEGATIVE (NEGATIVE) RSV (PCR) NEGATIVE (NEGATIVE) SARS-CoV-2 (PCR) NEGATIVE (NEGATIVE) Slides for Path Review 07/01/23 Range/Units 19:00 WBC (4.0-10.5) x10^3/uL RBC (4.1-5.6) x10^6/uL Hgb (12.5-18.0) g/dL Hct (42-50) % MCV (78-100) fL MCH (26-32) pg MCHC (32-36) g/dL RDW (11.5-14.0) % Plt Count (150-450) x10^3/uL MPV (7.5-11.0) fL Gran % (36.0-66.0) % Immature Gran % (Auto) (0.00-0.4) % Nucleat RBC Rel Count (0.00-0.1) % Eos # (Auto) (0-0.5) x10^3/uL Immature Gran # (Auto) (0.00-0.03) x10^3u/L Absolute Lymphs (auto) (1.0-4.6) x10^3/uL Absolute Monos (auto) (0.0-1.3) x10^3/uL Absolute Nucleated RBC (0.00-0.01) x10^3u/L Lymphocytes % (24.0-44.0) % Monocytes % (0.0-12.0) % Eosinophils % (0.00-5.0) % Basophils % (0.0-0.4) % Absolute Granulocytes (1.4-6.9) x10^3/uL Basophils # (0-0.4) x10^3/uL D-Dimer (0.0-0.50) mg/L Sodium (137-145) mmol/L Potassium (3.5-5.1) mmol/L Chloride (98-107) mmol/L Carbon Dioxide (22-30) mmol/L Anion Gap (5-15) MEQ/L BUN (9-20) mg/dL Creatinine (0.66-1.25) mg/dL Estimated GFR ML/MIN Glucose (74-106) mg/dL Calcium (8.4-10.2) mg/dL Magnesium (1.6-2.3) mg/dL Total Bilirubin (0.2-1.3) mg/dL AST (17-59) U/L ALT (0-50) U/L Alkaline Phosphatase (38-126) U/L Troponin I < 0.012 (0.000-0.034) ng/mL Serum Total Protein (6.3-8.2) g/dL Albumin (3.5-5.0) g/dL Urine Color (Yellow) Urine Appearance (Clear) Urine pH (4.6-8.0) Ur Specific [place] (1.005-1.030) Urine Protein (Negative) Urine Glucose (UA) (Negative) mg/dL Urine Ketones (Negative) Urine Blood (Negative) Urine Nitrite (Negative) Urine Bilirubin (Negative) Urine Urobilinogen (0.2) mg/dL Ur Leukocyte Esterase (Negative) U Hyaline Cast (Auto) (0-2) /LPF Urine Microscopic RBC (0-5) /HPF Urine Microscopic WBC (0-5) /HPF Ur Epithelial Cells (None Seen) /HPF Urine Bacteria (None Seen) /HPF Urine Culture Reflexed (NO) Influenza Type A Ag (NEGATIVE) Influenza Type B Ag (NEGATIVE) RSV (PCR) (NEGATIVE) SARS-CoV-2 (PCR) (NEGATIVE) Slides for Path Review - Radiology Impressions Radiology Exams & Impressions: Radiology Procedures Category Date Time Status CHEST WITH CONTRAST [CT] Stat Exams 07/01/23 15:58 Taken - Other Procedures and Tests Respiratory Therapy 07/01/23 20:22 Smoking Cessation Education ONCE Assessment/Plan (1) Hyponatremia Current Visit: Yes Status: Acute Assessment & Plan: Likely from hypovolemia versus low solute intake from EtOH 1. Isotonic IVFs 2. Limit free water 3. Watch electrolytes closely Code(s): E87.1 - HYPO-OSMOLALITY AND HYPONATREMIA (2) Metabolic acidosis Current Visit: Yes Status: Acute Assessment & Plan: Likely from ketosis 1. Gentle bicarb drip 2. IVFs Code(s): E87.20 - ACIDOSIS, UNSPECIFIED (3) Alcohol abuse Current Visit: Yes Status: Acute Assessment & Plan: Drinks about 1/2 pint daily, at high risk for DT 1. CIWA 2. Ativan prn 3. EtOH cessation 4. Monitor for DTs Code(s): F10.10 - ALCOHOL ABUSE, UNCOMPLICATED (4) COPD exacerbation Current Visit: Yes Status: Acute Assessment & Plan: Likely from influenza 1. Duonebs 2. Solumedrol 3. O2 supplementation prn 4. Monitor O2 sats Code(s): J44.1 - CHRONIC OBSTRUCTIVE PULMONARY DISEASE W (ACUTE) EXACERBATION (5) Influenza A Current Visit: Yes Status: Acute Assessment & Plan: Positive for influenza A, no sick contacts reported 1. Respiratory isolation for flu 2. Tamiflu 75mg BID 3. Monitor O2 sats Code(s): J10.1 - FLU DUE TO OTH IDENT INFLUENZA VIRUS W OTH RESP MANIFEST Telemedicine Encounter - Telemedicine Encounter Telemedicine Encounter: The entirety of this encounter was performed via Telemedicine"
[2023-07-01] MEDS: Tamiflu 75MG Capsule PO SCH (21:55)
[2023-07-01] MEDS: Ativan 2 MG/1 ML VIAL IV PRN (21:55)
[2023-07-01] MEDS: solu-MEDROL 30 MG, Sterile H2O 10 ml 1 ML IV SCH (21:56)
[2023-07-01] MEDS ORDERED: SODIUM BICARBONATE 50 MEQ/50 ML ABBOJECT IV ONE (22:11)
[2023-07-01] MEDS ORDERED: Dextrose 5%/Water IV Soln. 1000 ML 1,000 ML IV ONE (22:11)
[2023-07-01] MEDS: Sodium Bicarbonate 50 MEQ/50 ML VIAL*** 150 MEQ in Dextrose 5%/Water IV Soln. 1000 ML 1... IV SCH (22:15)
[2023-07-02] MEDS: DUONEB 0.5-3 MG/3 ml Neb IH SCH (01:11)
[2023-07-02 03:29] LABS: ALBUMIN 3.2 g/dL (3.5-5.0); BILIRUBIN,TOTAL 1.4 mg/dL (0.2-1.3); Calcium 8.3 mg/dL (8.4-10.2); Creatinine 1 0.7 mg/dL (0.66-1.25); EST GLOMERULAR FILTRATION RATE 103.5 ML/MIN; MAGNESIUM 1.9 mg/dL (1.6-2.3); Potassium 3.4 mmol/L (3.5-5.1); Total Protein 6.2 g/dL (6.3-8.2)
--- NOTE | 2023-07-02 08:36 | XRAY ---
Indication: Short of breath. Elevated d-dimer. Multiple contiguous axial images obtained through the chest using 100 cc Isovue 370 contrast and PE protocol. Comparison: None Adequate opacification of the pulmonary arteries including lobar and segmental branches. No pulmonary embolus. Heart not enlarged with scattered coronary calcifications. Aorta minimally arteriosclerotic without aneurysm/dissection. No pathologic mediastinal/hilar lymphadenopathy. Lungs demonstrates moderate diffuse pulmonary emphysema, mild bibasilar fibrosis/scarring, and a few bilateral calcified granulomas. No suspicious pulmonary mass/nodule, infiltrate, or effusion. Bony thorax demonstrates osteopenia and remote T2 superior endplate fracture with less than 25% height loss. Additional acute appearing T7-T9 compression fractures with 50-75% height loss without spinal canal compromise. Limited upper abdomen demonstrates cirrhotic liver and 15.8 cm splenomegaly. Impression: 1. Negative pulmonary embolus. No acute cardiopulmonary abnormalities. 2. Chronic findings including pulmonary emphysema, pulmonary fibrosis/scarring, cirrhotic liver, splenomegaly, and old granulomatous disease. 3. Acute appearing T7-T9 compression fractures. Also osteopenia and remote T2 endplate fracture.
[2023-07-02] MEDS: VITAMIN B-1 100 MG PO SCH (08:43)
[2023-07-02] MEDS: FOLATE 1 MG PO SCH (08:43)
[2023-07-02] MEDS: THERAGRAN MULTIVITAMIN PO SCH (08:43)
[2023-07-02] MEDS: Klor Con PO SCH ×2 (08:43→17:37)
[2023-07-02 09:08] LABS: Hematocrit 32.1 % (42-50); Hemoglobin 10.9 g/dL (12.5-18.0); Mean Cell Volume 90.9 fL (78-100); Mean Corpuscular Hemoglobin 30.9 pg (26-32); Mean Platelet Volume 13.2 fL (7.5-11.0); Red Blood Count 3.53 x10^6/uL (4.1-5.6); Red Cell Distribution Width 14.7 % (11.5-14.0); White Blood Count 2.1 x10^3/uL (4.0-10.5)
--- NOTE | 2023-07-02 09:48 | PCM.NOTE ---
Date and Time: 07/02/23 0943 Subjective Assessment: Mr. Mckeon is a 62 year old male with a past medical history significant for significant EtOH use (about half a pint a day) with cirrhosis, COPD and hypertension. He presented to the hospital with complaints of fever, chills and not feeling well for about four days. He reports poor appetite, has not been eating/drinking well and was found to be positive for influenza in the ER. He is currently resting in bed, awake/alert. No chest pain or shortness of breath. No productive cough. Initial labs were notable for a sodium of 135 and bicarb 16. He was placed on a bicarb gtt and alcohol withdrawal protocol in place. Tamiflu started. Pt continues to c/o cough and tessalon pearls added. Pt denies CP, SOB, abd. pain, N/V/D. - Review of Systems Constitutional: Fatigue, No Fever, No Chills Eyes: No Symptoms Ears, Nose, & Throat: No Symptoms Respiratory: Cough, No Short Of Breath Cardiac: No Chest Pain, No Edema, No Syncope Abdominal/Gastrointestinal: No Abdominal Pain, No Nausea, No Vomiting, No Diarrhea Genitourinary Symptoms: No Dysuria Musculoskeletal: No Back Pain, No Neck Pain Skin: No Rash Neurological: No Dizziness, No Focal Weakness, No Sensory Changes Psychological: No Symptoms Endocrine: No Symptoms Hematologic/Lymphatic: No Symptoms Immunological/Allergic: No Symptoms Objective Exam General Appearance: no apparent distress, alert Neurologic Exam: alert, oriented x 3, cooperative, normal mood/affect, nml cerebellar function, sensation nml, No motor deficits Skin Exam: normal color, warm, dry Eye Exam: PERRL, EOMI, eyes nml inspection Ears, Nose, Throat Exam: normal ENT inspection, pharynx normal, moist mucous membranes Neck Exam: normal inspection, non-tender, supple, full range of motion Respiratory Exam: normal breath sounds, lungs clear, No respiratory distress Cardiovascular Exam: regular rate/rhythm, normal heart sounds Gastrointestinal/Abdomen Exam: soft, No tenderness, No mass Extremity Exam: normal inspection, normal range of motion Back Exam: normal inspection, normal range of motion, No CVA tenderness, No vertebral tenderness Male Genitalia Exam: deferred Rectal Exam: deferred OBJECTIVE DATA Vital Signs: Vital Signs - 24 hr Temp Pulse Resp BP BP Pulse Ox 07/02/23 08:00 97.6 F 94 H 29 H 135/74 98 07/02/23 06:42 63 18 94 L 07/02/23 03:57 97.5 F 75 19 134/70 95 07/02/23 01:11 75 16 94 L 07/01/23 23:53 97.7 F 71 20 143/65 95 07/01/23 21:55 72 19 151/74 07/01/23 21:10 62 20 98 07/01/23 20:03 97.3 F 68 18 151/74 96 07/01/23 19:17 96 07/01/23 19:01 70 20 106/54 96 07/01/23 18:45 72 15 129/72 95 07/01/23 18:30 72 25 H 129/76 96 07/01/23 18:15 71 20 124/67 96 07/01/23 18:00 75 24 130/69 96 07/01/23 17:47 78 22 145/73 97 07/01/23 17:00 85 128/67 07/01/23 16:45 70 23 125/66 95 07/01/23 16:30 81 28 H 126/64 97 07/01/23 16:15 77 26 H 110/74 94 L 07/01/23 16:00 74 31 H 119/77 96 07/01/23 15:45 82 29 H 127/59 97 07/01/23 15:30 74 24 115/86 97 07/01/23 15:08 68 19 97 07/01/23 15:02 98 07/01/23 15:00 73 28 H 128/64 96 07/01/23 14:45 61 20 134/71 95 07/01/23 14:42 98.8 F 68 24 140/69 98 Pain Assessment - Last Documented Pain Intensity 0 Intake and Output: Intake & Output 06/29/23 06/30/23 07/01/23 07/02/23 11:59 11:59 11:59 11:59 Intake Total 1317 Balance 1317 Weight 64.6 kg Lab Results: Lab Results-Last 24 Hours 07/01/23 07/01/23 07/01/23 Range/Units 02:15 15:12 15:12 WBC 4.0 (4.0-10.5) x10^3/uL RBC 3.94 L (4.1-5.6) x10^6/uL Hgb 12.1 L (12.5-18.0) g/dL Hct 36.8 L (42-50) % MCV 93.4 (78-100) fL MCH 30.7 (26-32) pg MCHC 32.9 (32-36) g/dL RDW 15.4 H (11.5-14.0) % Plt Count 52 L (150-450) x10^3/uL MPV 13.2 H (7.5-11.0) fL Gran % 75.6 H (36.0-66.0) % Immature Gran % (Auto) 0.5 H (0.00-0.4) % Nucleat RBC Rel Count 0.0 (0.00-0.1) % Eos # (Auto) 0.04 (0-0.5) x10^3/uL Immature Gran # (Auto) 0.02 (0.00-0.03) x10^3u/L Absolute Lymphs (auto) 0.49 L (1.0-4.6) x10^3/uL Absolute Monos (auto) 0.41 (0.0-1.3) x10^3/uL Absolute Nucleated RBC 0.00 (0.00-0.01) x10^3u/L Lymphocytes % 12.3 L (24.0-44.0) % Monocytes % 10.3 (0.0-12.0) % Eosinophils % 1.0 (0.00-5.0) % Basophils % 0.3 (0.0-0.4) % Absolute Granulocytes 3.03 (1.4-6.9) x10^3/uL Basophils # 0.01 (0-0.4) x10^3/uL D-Dimer (0.0-0.50) mg/L Sodium 135 L (137-145) mmol/L Potassium 3.6 (3.5-5.1) mmol/L Chloride 110 H (98-107) mmol/L Carbon Dioxide 16 L* (22-30) mmol/L Anion Gap 12.9 (5-15) MEQ/L BUN 9 (9-20) mg/dL Creatinine 0.76 (0.66-1.25) mg/dL Estimated GFR 101.0 ML/MIN Glucose 87 (74-106) mg/dL Calcium 8.6 (8.4-10.2) mg/dL Magnesium 1.7 (1.6-2.3) mg/dL Total Bilirubin 2.20 H (0.2-1.3) mg/dL AST 37 (17-59) U/L ALT 17 (0-50) U/L Alkaline Phosphatase 99 (38-126) U/L Troponin I < 0.012 (0.000-0.034) ng/mL Serum Total Protein 7.0 (6.3-8.2) g/dL Albumin 3.7 (3.5-5.0) g/dL Urine Color (Yellow) Urine Appearance (Clear) Urine pH (4.6-8.0) Ur Specific [place] (1.005-1.030) Urine Protein (Negative) Urine Glucose (UA) (Negative) mg/dL Urine Ketones (Negative) Urine Blood (Negative) Urine Nitrite (Negative) Urine Bilirubin (Negative) Urine Urobilinogen (0.2) mg/dL Ur Leukocyte Esterase (Negative) U Hyaline Cast (Auto) (0-2) /LPF Urine Microscopic RBC (0-5) /HPF Urine Microscopic WBC (0-5) /HPF Ur Epithelial Cells (None Seen) /HPF Urine Bacteria (None Seen) /HPF Urine Culture Reflexed (NO) Influenza Type A Ag (NEGATIVE) Influenza Type B Ag (NEGATIVE) RSV (PCR) (NEGATIVE) SARS-CoV-2 (PCR) (NEGATIVE) Slides for Path Review YES 07/01/23 07/01/23 07/01/23 Range/Units 15:12 15:12 15:22 WBC (4.0-10.5) x10^3/uL RBC (4.1-5.6) x10^6/uL Hgb (12.5-18.0) g/dL Hct (42-50) % MCV (78-100) fL MCH (26-32) pg MCHC (32-36) g/dL RDW (11.5-14.0) % Plt Count (150-450) x10^3/uL MPV (7.5-11.0) fL Gran % (36.0-66.0) % Immature Gran % (Auto) (0.00-0.4) % Nucleat RBC Rel Count (0.00-0.1) % Eos # (Auto) (0-0.5) x10^3/uL Immature Gran # (Auto) (0.00-0.03) x10^3u/L Absolute Lymphs (auto) (1.0-4.6) x10^3/uL Absolute Monos (auto) (0.0-1.3) x10^3/uL Absolute Nucleated RBC (0.00-0.01) x10^3u/L Lymphocytes % (24.0-44.0) % Monocytes % (0.0-12.0) % Eosinophils % (0.00-5.0) % Basophils % (0.0-0.4) % Absolute Granulocytes (1.4-6.9) x10^3/uL Basophils # (0-0.4) x10^3/uL D-Dimer 7.67 H* (0.0-0.50) mg/L Sodium (137-145) mmol/L Potassium (3.5-5.1) mmol/L Chloride (98-107) mmol/L Carbon Dioxide (22-30) mmol/L Anion Gap (5-15) MEQ/L BUN (9-20) mg/dL Creatinine (0.66-1.25) mg/dL Estimated GFR ML/MIN Glucose (74-106) mg/dL Calcium (8.4-10.2) mg/dL Magnesium (1.6-2.3) mg/dL Total Bilirubin (0.2-1.3) mg/dL AST (17-59) U/L ALT (0-50) U/L Alkaline Phosphatase (38-126) U/L Troponin I < 0.012 (0.000-0.034) ng/mL Serum Total Protein (6.3-8.2) g/dL Albumin (3.5-5.0) g/dL Urine Color (Yellow) Urine Appearance (Clear) Urine pH (4.6-8.0) Ur Specific [place] (1.005-1.030) Urine Protein (Negative) Urine Glucose (UA) (Negative) mg/dL Urine Ketones (Negative) Urine Blood (Negative) Urine Nitrite (Negative) Urine Bilirubin (Negative) Urine Urobilinogen (0.2) mg/dL Ur Leukocyte Esterase (Negative) U Hyaline Cast (Auto) (0-2) /LPF Urine Microscopic RBC (0-5) /HPF Urine Microscopic WBC (0-5) /HPF Ur Epithelial Cells (None Seen) /HPF Urine Bacteria (None Seen) /HPF Urine Culture Reflexed (NO) Influenza Type A Ag POSITIVE A (NEGATIVE) Influenza Type B Ag NEGATIVE (NEGATIVE) RSV (PCR) NEGATIVE (NEGATIVE) SARS-CoV-2 (PCR) NEGATIVE (NEGATIVE) Slides for Path Review 07/01/23 07/01/23 07/02/23 Range/Units 17:57 19:00 02:15 WBC (4.0-10.5) x10^3/uL RBC (4.1-5.6) x10^6/uL Hgb (12.5-18.0) g/dL Hct (42-50) % MCV (78-100) fL MCH (26-32) pg MCHC (32-36) g/dL RDW (11.5-14.0) % Plt Count (150-450) x10^3/uL MPV (7.5-11.0) fL Gran % (36.0-66.0) % Immature Gran % (Auto) (0.00-0.4) % Nucleat RBC Rel Count (0.00-0.1) % Eos # (Auto) (0-0.5) x10^3/uL Immature Gran # (Auto) (0.00-0.03) x10^3u/L Absolute Lymphs (auto) (1.0-4.6) x10^3/uL Absolute Monos (auto) (0.0-1.3) x10^3/uL Absolute Nucleated RBC (0.00-0.01) x10^3u/L Lymphocytes % (24.0-44.0) % Monocytes % (0.0-12.0) % Eosinophils % (0.00-5.0) % Basophils % (0.0-0.4) % Absolute Granulocytes (1.4-6.9) x10^3/uL Basophils # (0-0.4) x10^3/uL D-Dimer (0.0-0.50) mg/L Sodium 134 L (137-145) mmol/L Potassium 3.4 L (3.5-5.1) mmol/L Chloride 109 H (98-107) mmol/L Carbon Dioxide 17 L (22-30) mmol/L Anion Gap 11.0 (5-15) MEQ/L BUN 12 (9-20) mg/dL Creatinine 0.70 (0.66-1.25) mg/dL Estimated GFR 103.5 ML/MIN Glucose 285 H (74-106) mg/dL Calcium 8.3 L (8.4-10.2) mg/dL Magnesium 1.9 (1.6-2.3) mg/dL Total Bilirubin 1.40 H (0.2-1.3) mg/dL AST 33 (17-59) U/L ALT 17 (0-50) U/L Alkaline Phosphatase 94 (38-126) U/L Troponin I < 0.012 (0.000-0.034) ng/mL Serum Total Protein 6.2 L (6.3-8.2) g/dL Albumin 3.2 L (3.5-5.0) g/dL Urine Color Dark Yellow (Yellow) Urine Appearance Clear (Clear) Urine pH 6.0 (4.6-8.0) Ur Specific [place] 1.025 (1.005-1.030) Urine Protein 300 A (Negative) Urine Glucose (UA) Negative (Negative) mg/dL Urine Ketones Trace A (Negative) Urine Blood Moderate A (Negative) Urine Nitrite Negative (Negative) Urine Bilirubin Negative (Negative) Urine Urobilinogen 1.0 A (0.2) mg/dL Ur Leukocyte Esterase Negative (Negative) U Hyaline Cast (Auto) NONE SEEN (0-2) /LPF Urine Microscopic RBC 21-50 A (0-5) /HPF Urine Microscopic WBC 0-2 (0-5) /HPF Ur Epithelial Cells None Seen (None Seen) /HPF Urine Bacteria None Seen (None Seen) /HPF Urine Culture Reflexed YES (NO) Influenza Type A Ag (NEGATIVE) Influenza Type B Ag (NEGATIVE) RSV (PCR) (NEGATIVE) SARS-CoV-2 (PCR) (NEGATIVE) Slides for Path Review Radiology Exams: Radiology Procedures Category Date Time Status CHEST WITH CONTRAST [CT] Stat Exams 07/01/23 15:58 Completed Assessment/Plan (1) Influenza A Current Visit: Yes Status: Acute Assessment & Plan: Positive for influenza A, no sick contacts reported 1. Respiratory isolation for flu 2. Tamiflu 75mg BID 3. Monitor O2 sats 4. tessalon pearls for cough Code(s): J10.1 - FLU DUE TO OTH IDENT INFLUENZA VIRUS W OTH RESP MANIFEST (2) Alcohol abuse Current Visit: Yes Status: Acute Assessment & Plan: Drinks about 1/2 pint daily, at high risk for DT 1. CIWA 2. Ativan prn 3. ETOH cessation 4. Monitor for DTs 5. seizure precautions Code(s): F10.10 - ALCOHOL ABUSE, UNCOMPLICATED (3) COPD exacerbation Current Visit: Yes Status: Acute Assessment & Plan: Likely from influenza 1. Duonebs 2. Solumedrol 3. O2 supplementation prn 4. Monitor O2 sats 5. currently RA 98% 6. Chest CT: 04/30 Impression: 1. Negative pulmonary embolus. No acute cardiopulmonary abnormalities. 2. Chronic findings including pulmonary emphysema, pulmonary fibrosis/scarring, cirrhotic liver, splenomegaly, and old granulomatous disease. 3. Acute appearing T7-T9 compression fractures. Also osteopenia and remote T2 endplate fracture Code(s): J44.1 - CHRONIC OBSTRUCTIVE PULMONARY DISEASE W (ACUTE) EXACERBATION (4) Hyponatremia Current Visit: Yes Status: Acute Assessment & Plan: - Na+ 134- mild - trend Code(s): E87.1 - HYPO-OSMOLALITY AND HYPONATREMIA (5) Metabolic acidosis Current Visit: Yes Status: Acute Assessment & Plan: - carbon dioxide 17 - trend - bicarb gtt Code(s): E87.20 - ACIDOSIS, UNSPECIFIED (6) Hypokalemia Current Visit: Yes Status: Acute Assessment & Plan: - K+ 3.4 replaced - trend Code(s): E87.6 - HYPOKALEMIA (7) Compression fracture of thoracic vertebra Current Visit: Yes Status: Acute Assessment & Plan: - as seen on CT chest - Impression: 1. Negative pulmonary embolus. No acute cardiopulmonary abnormalities. 2. Chronic findings including pulmonary emphysema, pulmonary fibrosis/scarring, cirrhotic liver, splenomegaly, and old granulomatous disease. 3. Acute appearing T7-T9 compression fractures. Also osteopenia and remote T2 endplate fracture - F/U with neurosurgery OP pt has no c/o pain in thoracic region VTE: Lovenox PPI: Protonix Next of kin: Luna Bingham [phone] Code status: Full D/C plan: tomorrow Code(s): S22.000A - WEDGE COMPRESSION FRACTURE OF UNSP THORACIC VERTEBRA, INIT
[2023-07-02 09:50] LABS: Platelet Count 30 x10^3/uL (150-450)
[2023-07-02 09:51] LABS: Slide Review YES
[2023-07-02] MEDS: Tessalon Perles 100 MG PO PRN (10:55)
[2023-07-02 11:04] LABS: ALBUMIN 3.2 g/dL (3.5-5.0); ANION GAP 10.3 MEQ/L (5-15); BILIRUBIN,TOTAL 1.4 mg/dL (0.2-1.3); Calcium 8.3 mg/dL (8.4-10.2); Creatinine 1 0.68 mg/dL (0.66-1.25); EST GLOMERULAR FILTRATION RATE 104.5 ML/MIN; Potassium 3.1 mmol/L (3.5-5.1); Total Protein 6.2 g/dL (6.3-8.2)
[2023-07-02] MEDS: PROTONIX 40 MG IV IV SCH (12:19)
[2023-07-02] MEDS: HEPARIN 5000 UNITS/0.5 ML (HIGH RISK MED) SQ SCH (12:19)
[2023-07-03 06:03] LABS: Calcium 7.8 mg/dL (8.4-10.2); Creatinine 1 0.66 mg/dL (0.66-1.25); EST GLOMERULAR FILTRATION RATE 105.4 ML/MIN; MAGNESIUM 1.9 mg/dL (1.6-2.3); Potassium 4.1 mmol/L (3.5-5.1)
[2023-07-03 06:04] LABS: Hemoglobin 9.4 g/dL (12.5-18.0); Mean Cell Volume 91.5 fL (78-100); Mean Corpuscular Hemoglobin 30.7 pg (26-32); Mean Corpuscular Hgb Concent. 33.6 g/dL (32-36); Mean Platelet Volume 14.5 fL (7.5-11.0); Red Blood Count 3.06 x10^6/uL (4.1-5.6)
[2023-07-03 06:06] LABS: Platelet Count 22 x10^3/uL (150-450)
[2023-07-03 07:52] LABS: Slide Review YES
[2023-07-03] MEDS ORDERED: ENOXAPARIN SODIUM SQ SCH (10:00)
--- NOTE | 2023-07-03 10:54 | XRAY ---
Indication: Short of breath. Comparison: CT chest July 01, 2023 PA/lateral chest again demonstrates COPD with a few tiny bilateral pulmonary calcified granulomas. No focal infiltrate, consolidation, or large effusion. Heart not enlarged. Bony thorax again demonstrates osteopenia, grossly stable multilevel thoracic compression fractures, old right rib fractures, and right axillary hakeem dissection. Impression: Continued nonacute chest with chronic features.
[2023-07-03 10:55] LABS: PHOSPHOROUS 1.4 mg/dL (2.5-4.5)
[2023-07-03] MEDS: ROCEPHIN 1 GM / 100 ML NaCl 1 GM/100 ML IVPB IV SCH (12:09)
[2023-07-03] MEDS ORDERED: DUONEB 0.5-3 MG/3 ml Neb IH PRN (14:47)
--- NOTE | 2023-07-03 15:41 | PCM.NOTE ---
Date and Time: 07/03/23 1532 Subjective Assessment: 07/02/23 Mr. Mckeon is a 62 year old male with a past medical history significant for significant EtOH use (about half a pint a day) with cirrhosis, COPD and hypertension. He presented to the hospital with complaints of fever, chills and not feeling well for about four days. He reports poor appetite, has not been eating/drinking well and was found to be positive for influenza in the ER. He is currently resting in bed, awake/alert. No chest pain or shortness of breath. No productive cough. Initial labs were notable for a sodium of 135 and bicarb 16. He was placed on a bicarb gtt and alcohol withdrawal protocol in place. Tamiflu started. Pt continues to c/o cough and tessalon pearls added. Pt denies CP, SOB, abd. pain, N/V/D. 07/03/23 Pt resting in bed. Pt states he continues to feel bad and no improvement from yesterday. CO2 is worse than yesterday at 15. He has shown no improvement with bicarb level despite being on bicarb gtt for the past 2 days. Will consult nephrology for further evaluation. May have renal tubular acidosis. Pt has been a heavy drinker since his teens. Will obtain US of liver and hepatitis panel ordered. Platelets dropped again will stop heparin. Pt reports he was to see an oncologist in the past for low platelets but never f/u for appointment. Lung sounds coarse this AM. CXR shows COPD. Will start antibiotics for COPD exacerbation. He denies CP, SOB, abd. pain, N/V/D. - Review of Systems Constitutional: Fatigue, No Fever, No Chills Eyes: No Symptoms Ears, Nose, & Throat: No Symptoms Respiratory: Cough, No Short Of Breath Cardiac: No Chest Pain, No Edema, No Syncope Abdominal/Gastrointestinal: No Abdominal Pain, No Nausea, No Vomiting, No Diarrhea Genitourinary Symptoms: No Dysuria Musculoskeletal: No Back Pain, No Neck Pain Skin: No Rash Neurological: No Dizziness, No Focal Weakness, No Sensory Changes Psychological: No Symptoms Endocrine: No Symptoms Hematologic/Lymphatic: No Symptoms Immunological/Allergic: No Symptoms Objective Exam General Appearance: no apparent distress, alert Neurologic Exam: alert, oriented x 3, cooperative, normal mood/affect, nml cerebellar function, sensation nml, No motor deficits Skin Exam: normal color, warm, dry Eye Exam: PERRL, EOMI, eyes nml inspection Ears, Nose, Throat Exam: normal ENT inspection, pharynx normal, moist mucous membranes Neck Exam: normal inspection, non-tender, supple, full range of motion Respiratory Exam: normal breath sounds, lungs clear, crackles/rales, No respiratory distress Cardiovascular Exam: regular rate/rhythm, normal heart sounds Gastrointestinal/Abdomen Exam: soft, No tenderness, No mass Extremity Exam: normal inspection, normal range of motion Back Exam: normal inspection, normal range of motion, No CVA tenderness, No vertebral tenderness Male Genitalia Exam: deferred Rectal Exam: deferred OBJECTIVE DATA Vital Signs: Vital Signs - 24 hr Temp Pulse Resp BP Pulse Ox 07/03/23 12:56 78 99 07/03/23 11:44 98.5 F 86 16 152/70 96 07/03/23 07:46 97.8 F 66 16 128/63 98 07/03/23 07:17 86 18 97 07/03/23 04:00 98.0 F 73 20 126/60 97 07/03/23 01:11 87 16 96 07/02/23 23:51 98.1 F 78 16 97/55 96 07/02/23 20:00 98.2 F 91 H 18 123/61 96 07/02/23 18:43 91 H 18 96 07/02/23 16:00 97.6 F 97 H 17 139/63 97 Pain Assessment - Last Documented Pain Intensity 0 Intake and Output: Intake & Output 07/01/23 07/02/23 07/03/23 07/04/23 11:59 11:59 11:59 11:59 Intake Total 1317 2861 120 Balance 1317 2861 120 Weight 64.6 kg Lab Results: Lab Results-Last 24 Hours 07/02/23 07/03/23 07/03/23 Range/Units 16:28 04:29 04:29 WBC 2.0 L (4.0-10.5) x10^3/uL RBC 3.06 L (4.1-5.6) x10^6/uL Hgb 9.4 L (12.5-18.0) g/dL Hct 28.0 L (42-50) % MCV 91.5 (78-100) fL MCH 30.7 (26-32) pg MCHC 33.6 (32-36) g/dL RDW 15.0 H (11.5-14.0) % Plt Count 22 L* (150-450) x10^3/uL MPV 14.5 H (7.5-11.0) fL Sodium 132 L (137-145) mmol/L Potassium 3.1 L 4.1 D (3.5-5.1) mmol/L Chloride 109 H (98-107) mmol/L Carbon Dioxide 15 L* (22-30) mmol/L Anion Gap 12.0 (5-15) MEQ/L BUN 12 (9-20) mg/dL Creatinine 0.66 (0.66-1.25) mg/dL Estimated GFR 105.4 ML/MIN Glucose 260 H (74-106) mg/dL Calcium 7.8 L (8.4-10.2) mg/dL Phosphorus (2.5-4.5) mg/dL Magnesium 1.9 (1.6-2.3) mg/dL Creatine Kinase (55-170) U/L Slides for Path Review YES 07/03/23 Range/Units 04:29 WBC (4.0-10.5) x10^3/uL RBC (4.1-5.6) x10^6/uL Hgb (12.5-18.0) g/dL Hct (42-50) % MCV (78-100) fL MCH (26-32) pg MCHC (32-36) g/dL RDW (11.5-14.0) % Plt Count (150-450) x10^3/uL MPV (7.5-11.0) fL Sodium (137-145) mmol/L Potassium (3.5-5.1) mmol/L Chloride (98-107) mmol/L Carbon Dioxide (22-30) mmol/L Anion Gap (5-15) MEQ/L BUN (9-20) mg/dL Creatinine (0.66-1.25) mg/dL Estimated GFR ML/MIN Glucose (74-106) mg/dL Calcium (8.4-10.2) mg/dL Phosphorus 1.4 L (2.5-4.5) mg/dL Magnesium (1.6-2.3) mg/dL Creatine Kinase 95 (55-170) U/L Slides for Path Review Radiology Exams: Radiology Procedures Category Date Time Status CHEST 2 VIEWS (PA AND LAT) Routine Exams 07/03/23 10:03 Completed CHEST WITH CONTRAST [CT] Stat Exams 07/01/23 15:58 Completed Assessment/Plan (1) Influenza A Current Visit: Yes Status: Acute Code(s): J10.1 - FLU DUE TO OTH IDENT INFLUENZA VIRUS W OTH RESP MANIFEST (2) Alcohol abuse Current Visit: Yes Status: Acute Code(s): F10.10 - ALCOHOL ABUSE, UNCOMPLICATED (3) COPD exacerbation Current Visit: Yes Status: Acute Code(s): J44.1 - CHRONIC OBSTRUCTIVE PULMONARY DISEASE W (ACUTE) EXACERBATION (4) Hyponatremia Current Visit: Yes Status: Acute Code(s): E87.1 - HYPO-OSMOLALITY AND HYPONATREMIA (5) Metabolic acidosis Current Visit: Yes Status: Acute Code(s): E87.20 - ACIDOSIS, UNSPECIFIED (6) Hypokalemia Current Visit: Yes Status: Acute Code(s): E87.6 - HYPOKALEMIA (7) Compression fracture of thoracic vertebra Current Visit: Yes Status: Acute Assessment & Plan: (1) Influenza A Current Visit: Yes Status: Acute Assessment & Plan: Positive for influenza A, no sick contacts reported 1. Respiratory isolation for flu 2. Tamiflu 75mg BID 3. Monitor O2 sats 4. tessalon pearls for cough Code(s): J10.1 - FLU DUE TO OTH IDENT INFLUENZA VIRUS W OTH RESP MANIFEST (2) Alcohol abuse Current Visit: Yes Status: Acute Assessment & Plan: Drinks about 1/2 pint daily, at high risk for DT 1. CIWA 2. Ativan prn 3. ETOH cessation 4. Monitor for DTs 5. seizure precautions 07/03 - Liver US - hepatitis panel Code(s): F10.10 - ALCOHOL ABUSE, UNCOMPLICATED (3) COPD exacerbation Current Visit: Yes Status: Acute Assessment & Plan: Likely from influenza 1. Duonebs 2. Solumedrol 3. O2 supplementation prn 4. Monitor O2 sats 5. currently RA 98% 6. Chest CT: 04/30 Impression: 1. Negative pulmonary embolus. No acute cardiopulmonary abnormalities. 2. Chronic findings including pulmonary emphysema, pulmonary fibrosis/scarring, cirrhotic liver, splenomegaly, and old granulomatous disease. 3. Acute appearing T7-T9 compression fractures. Also osteopenia and remote T2 endplate fracture 07/03 - Ceftriaxone added - CXR Impression: Continued nonacute chest with chronic features. Code(s): J44.1 - CHRONIC OBSTRUCTIVE PULMONARY DISEASE W (ACUTE) EXACERBATION (4) Hyponatremia Current Visit: Yes Status: Acute Assessment & Plan: - Na+ 134- mild - trend 07/03 - Na+ 132 Code(s): E87.1 - HYPO-OSMOLALITY AND HYPONATREMIA (5) Metabolic acidosis Current Visit: Yes Status: Acute Assessment & Plan: - carbon dioxide 17 - trend - bicarb gtt 07/03 - CO2 15 - cont bicarb gtt - nephrology consulted Code(s): E87.20 - ACIDOSIS, UNSPECIFIED (6) Hypokalemia Current Visit: Yes Status: Acute Assessment & Plan: - K+ 3.4 replaced - trend 07/03 - resolved Code(s): E87.6 - HYPOKALEMIA (7) Compression fracture of thoracic vertebra Current Visit: Yes Status: Acute Assessment & Plan: - as seen on CT chest - Impression: 1. Negative pulmonary embolus. No acute cardiopulmonary abnormalities. 2. Chronic findings including pulmonary emphysema, pulmonary fibrosis/scarring, cirrhotic liver, splenomegaly, and old granulomatous disease. 3. Acute appearing T7-T9 compression fractures. Also osteopenia and remote T2 endplate fracture - F/U with neurosurgery OP pt has no c/o pain in thoracic region VTE: SCD PPI: Protonix Next of kin: Luna Mckeon [phone] Code status: Full D/C plan: 2-3 days Code(s): S22.000A - WEDGE COMPRESSION FRACTURE OF UNSP THORACIC VERTEBRA, INIT Code(s): S22.000A - WEDGE COMPRESSION FRACTURE OF UNSP THORACIC VERTEBRA, INIT (8) Thrombocytopenia Current Visit: Yes Status: Chronic Assessment & Plan: - Platelets 22 - Heparin stopped - known hx - Will need Op f/u with oncology
[2023-07-03 17:18] LABS: Iron 26 ug/dL (49-181); Iron Saturation 11 % (20-39); TIBC 238 ug/dL (261-497)
[2023-07-03 18:18] LABS: Ferritin 59.6 ng/mL (17.9-464); Folate (Folic Acid) 6.44 ng/mL (2.76 - >20)
[2023-07-03] MEDS ORDERED: SODIUM BICARBONATE 50 MEQ/50 ML ABBOJECT IV ONE (21:48)
[2023-07-03] MEDS ORDERED: Dextrose 5%/Water IV Soln. 1000 ML 1,000 ML IV ONE (21:50)
[2023-07-03] MEDS: Ativan 2 MG/1 ML VIAL IV ONE (22:30)
[2023-07-04 05:49] LABS: Hematocrit 28.7 % (42-50); Hemoglobin 9.4 g/dL (12.5-18.0); Mean Cell Volume 91.7 fL (78-100); Mean Corpuscular Hgb Concent. 32.8 g/dL (32-36); Red Blood Count 3.13 x10^6/uL (4.1-5.6); Red Cell Distribution Width 15.1 % (11.5-14.0)
[2023-07-04 05:49] LABS: ALBUMIN 2.7 g/dL (3.5-5.0); ANION GAP 5.5 MEQ/L (5-15); BILIRUBIN,TOTAL 1.1 mg/dL (0.2-1.3); Calcium 7.6 mg/dL (8.4-10.2); Creatinine 1 0.59 mg/dL (0.66-1.25); Potassium 3.8 mmol/L (3.5-5.1); Total Protein 5.4 g/dL (6.3-8.2)
[2023-07-04 06:02] LABS: Platelet Count 26 x10^3/uL (150-450)
[2023-07-04 08:22] LABS: Lymphocytes 11 % (24-44); Neutrophils 89 % (36.-66.); Total Cells Counted 100
[2023-07-04 08:23] LABS: ANISOCYTOSIS 1+; Hypochromia 2+; Platelet Estimate DECREASED (NORMAL)
--- NOTE | 2023-07-04 10:09 | XRAY ---
Indication: Low CO2. Heavy alcohol use. Two-dimensional right upper quadrant abdominal sonogram performed. Comparison: None Visualized liver small with micronodular margins favoring cirrhosis. No focal solid/cystic hepatic mass or ascites. Head of pancreas demonstrates 1.2 x 1.8 x 1.6 cm cystic mass. Visualized gallbladder demonstrates abnormal wall thickening up to 4.1 mm. No cholelithiasis or pericholecystic fluid. Common bile duct measures 4.7 mm. No intrahepatic biliary distention. Right kidney measures 11.6 x 4.7 x 6.1 cm sonographically unremarkable. Impression: 1. Abnormal gallbladder wall thickening without cholelithiasis or pericholecystic fluid. Rule out acalculus chronic cholecystitis. 2. Cirrhotic appearing liver without ascites. 3. Pancreatic head cystic mass better evaluated with CT abdomen with contrast exam.
[2023-07-04] MEDS: FEOSOL 325 MG PO SCH (11:00)
[2023-07-04 12:04] VITALS: BP 138/87; PULSE 95; RESP 17; TEMP 97.6; O2SAT 96
--- NOTE | 2023-07-04 12:27 | PCM.DS ---
Discharge Summary Date of Admission: 07/01/23 19:45 Date of Discharge: 07/04/23 Admitting Physician: KALEIGH MILLAN MD Consults: Consults on Case 07/03/23 15:17 Consult Nephrology ROUTINE Primary Care Provider: RADHA APONTE ANAY Allergies Allergies codeine Allergy (Verified 07/01/23 19:54) Hospital Summary - Hospital Course Hospital Course: 07/02/23 Mr. Mckeon is a 62 year old male with a past medical history significant for significant EtOH use (about half a pint a day) with cirrhosis, COPD and hypertension. He presented to the hospital with complaints of fever, chills and not feeling well for about four days. He reports poor appetite, has not been eating/drinking well and was found to be positive for influenza in the ER. He is currently resting in bed, awake/alert. No chest pain or shortness of breath. No productive cough. Initial labs were notable for a sodium of 135 and bicarb 16 . He was placed on a bicarb gtt and alcohol withdrawal protocol in place. Tamiflu started. Pt continues to c/o cough and tessalon pearls added. Pt denies CP, SOB, abd. pain, N/V/D. 07/03/23 Pt resting in bed. Pt states he continues to feel bad and no improvement from yesterday. CO2 is worse than yesterday at 15. He has shown no improvement with bicarb level despite being on bicarb gtt for the past 2 days. Will consult nephrology for further evaluation. May have renal tubular acidosis. Pt has been a heavy drinker since his teens. Will obtain US of liver and hepatitis panel ordered. Platelets dropped again will stop heparin. Pt reports he was to see an oncologist in the past for low platelets but never f/u for appointment. Lung sounds coarse this AM. CXR shows COPD. Will start antibiotics for COPD exacerbation. He denies CP, SOB, abd. pain, N/V/D. 07/04/23 Pt sitting up in bed. He explains he feels much better. Nephrology did come in and see the pt today and OP labs and f/u appointment made. The consult was cancelled first thing this morning. CO2 is 26 and bicarb gtt closed. Plt are going up at 26. Oncology referral made for OP. Appointment made for f/u with neurosurgery for further evaluation of thoracic acute appearing fx. CT ordered for further evaluation of pancreas mass. Liver US did show cirrhosis. He is aware to f/ u with specialist OP and is agreeable. He denies CP, SOB, abd. pain, N/V/D. - Vitals & Intake/Output Vital Signs: Vital Signs Temperature 97.6 F 07/04/23 12:00 Pulse Rate 95 H 07/04/23 12:00 Respiratory Rate 17 07/04/23 12:00 Blood Pressure 138/87 07/04/23 12:00 O2 Sat by Pulse Oximetry 96 07/04/23 12:00 Intake & Output: Intake & Output 07/02/23 07/03/23 07/04/23 07/05/23 11:59 11:59 11:59 11:59 Intake Total 1317 2861 4259 Balance 1317 2861 425 Weight 64.6 kg - Lab Result Diagrams: 07/04/23 04:30 07/04/23 05:07 Lab Results-Last 24 Hrs: Lab Results-Last 24 Hours 07/03/23 07/03/23 07/04/23 Range/Units Unknown Unknown 04:30 WBC 2.0 L (4.0-10.5) x10^3/uL RBC 3.13 L (4.1-5.6) x10^6/uL Hgb 9.4 L (12.5-18.0) g/dL Hct 28.7 L (42-50) % MCV 91.7 (78-100) fL MCH 30.0 (26-32) pg MCHC 32.8 (32-36) g/dL RDW 15.1 H (11.5-14.0) % Plt Count 26 L* (150-450) x10^3/uL Segmented Neutrophils 89 H (36.-66.) % Lymphocytes (Manual) 11 L (24-44) % Hypochromia 2+ Platelet Estimate DECREASED (NORMAL) RBC Morphology ABNORMAL Anisocytosis 1+ Sodium (137-145) mmol/L Potassium (3.5-5.1) mmol/L Chloride (98-107) mmol/L Carbon Dioxide (22-30) mmol/L Anion Gap (5-15) MEQ/L BUN (9-20) mg/dL Creatinine (0.66-1.25) mg/dL Estimated GFR ML/MIN Glucose (74-106) mg/dL Calcium (8.4-10.2) mg/dL Iron 26 L (49-181) ug/dL TIBC 238 L (261-497) ug/dL Iron Saturation 11 L (20-39) % Ferritin 59.6 (17.9-464) ng/mL Total Bilirubin (0.2-1.3) mg/dL AST (17-59) U/L ALT (0-50) U/L Alkaline Phosphatase (38-126) U/L Serum Total Protein (6.3-8.2) g/dL Albumin (3.5-5.0) g/dL Vitamin B12 984 H (239-931) pg/mL Folic Acid 6.44 (2.76 - >20) ng/mL 07/04/23 Range/Units 05:07 WBC (4.0-10.5) x10^3/uL RBC (4.1-5.6) x10^6/uL Hgb (12.5-18.0) g/dL Hct (42-50) % MCV (78-100) fL MCH (26-32) pg MCHC (32-36) g/dL RDW (11.5-14.0) % Plt Count (150-450) x10^3/uL Segmented Neutrophils (36.-66.) % Lymphocytes (Manual) (24-44) % Hypochromia Platelet Estimate (NORMAL) RBC Morphology Anisocytosis Sodium 135 L (137-145) mmol/L Potassium 3.8 (3.5-5.1) mmol/L Chloride 108 H (98-107) mmol/L Carbon Dioxide 26 (22-30) mmol/L Anion Gap 5.5 (5-15) MEQ/L BUN 10 (9-20) mg/dL Creatinine 0.59 L (0.66-1.25) mg/dL Estimated GFR 109.0 ML/MIN Glucose 166 H (74-106) mg/dL Calcium 7.6 L (8.4-10.2) mg/dL Iron (49-181) ug/dL TIBC (261-497) ug/dL Iron Saturation (20-39) % Ferritin (17.9-464) ng/mL Total Bilirubin 1.10 (0.2-1.3) mg/dL AST 36 (17-59) U/L ALT 19 (0-50) U/L Alkaline Phosphatase 69 (38-126) U/L Serum Total Protein 5.4 L (6.3-8.2) g/dL Albumin 2.7 L (3.5-5.0) g/dL Vitamin B12 (239-931) pg/mL Folic Acid (2.76 - >20) ng/mL Micro Results-Entire Visit: Microbiology 07/01/23 17:57 Urine Culture - Final Clean Catch Midstream NO GROWTH 07/01/23 15:20 Blood Culture - Preliminary Blood 07/01/23 15:12 Blood Culture - Preliminary Blood - Radiology Exams Ordered Rad Exams-Entire Visit: Radiology Procedures Category Date Time Status CHEST 2 VIEWS (PA AND LAT) Routine Exams 07/03/23 10:03 Completed LIVER OR SPLEEN [US] Routine Exams 07/04/23 15:36 Completed - Procedures and Test Procedures and Tests throughout Hospitalization: Therapy Orders & Screens 07/01/23 15:08 Respiratory Therapy Assessment DAILY Comment: 07/01/23 20:22 Smoking Cessation Education ONCE Comment: Diagnosis: COPD exacerbation, thoracic spine fractures Smoking Status: Current every day smoker How long have you smoked: 40 years Do you dip or chew tobacco: No 07/04/23 09:40 PT Eval & Treat (MD Order) ONCE Reason for Eval:: [place] Diagnosis: COPD exacerbation, thoracic spine fractures Discharge Exam General Appearance: no apparent distress, alert Neurologic Exam: alert, oriented x 3, cooperative, normal mood/affect, nml cerebellar function, sensation nml, No motor deficits Eye Exam: PERRL, EOMI, eyes nml inspection Ears, Nose, Throat Exam: normal ENT inspection, pharynx normal, moist mucous membranes Neck Exam: normal inspection, non-tender, supple, full range of motion Respiratory Exam: normal breath sounds, lungs clear, No respiratory distress Cardiovascular Exam: regular rate/rhythm, normal heart sounds Gastrointestinal/Abdomen Exam: soft, No tenderness, No mass Male Genitalia Exam: deferred Rectal Exam: deferred Back Exam: normal inspection, normal range of motion, No CVA tenderness, No vertebral tenderness Extremity Exam: normal inspection, normal range of motion Skin Exam: normal color, warm, dry Final Diagnosis/Problem List - Final Discharge Diagnosis/Problem (1) Influenza A Current Visit: Yes Status: Acute Assessment & Plan: Assessment & Plan: Positive for influenza A, no sick contacts reported 1. Respiratory isolation for flu 2. Tamiflu 75mg BID 3. Monitor O2 sats 4. tessalon pearls for cough Code(s): J10.1 - FLU DUE TO OTH IDENT INFLUENZA VIRUS W OTH RESP MANIFEST (2) Alcohol abuse Current Visit: Yes Status: Acute Assessment & Plan: Drinks about 1/2 pint daily, at high risk for DT 1. CIWA 2. Ativan prn 3. ETOH cessation 4. Monitor for DTs 5. seizure precautions 07/03 - Liver US - hepatitis panel 07/04 - Liver US shows cirrhosis Code(s): F10.10 - ALCOHOL ABUSE, UNCOMPLICATED (3) COPD exacerbation Current Visit: Yes Status: Acute Assessment & Plan: Likely from influenza 1. Duonebs 2. Solumedrol 3. O2 supplementation prn 4. Monitor O2 sats 5. currently RA 98% 6. Chest CT: 04/30 Impression: 1. Negative pulmonary embolus. No acute cardiopulmonary abnormalities. 2. Chronic findings including pulmonary emphysema, pulmonary fibrosis/scarring, cirrhotic liver, splenomegaly, and old granulomatous disease. 3. Acute appearing T7-T9 compression fractures. Also osteopenia and remote T2 endplate fracture 07/03 - Ceftriaxone added - CXR Impression: Continued nonacute chest with chronic features. Code(s): J44.1 - CHRONIC OBSTRUCTIVE PULMONARY DISEASE W (ACUTE) EXACERBATION (4) Hyponatremia Current Visit: Yes Status: Acute Assessment & Plan: - Na+ 134- mild - trend 07/03 - Na+ 132 07/04 - Na+ 135 Code(s): E87.1 - HYPO-OSMOLALITY AND HYPONATREMIA (5) Metabolic acidosis Current Visit: Yes Status: Acute Assessment & Plan: - carbon dioxide 17 - trend - bicarb gtt 07/03 - CO2 15 - cont bicarb gtt - nephrology consulted 07/04 - nephrology consult cancelled at 7 am. - Nephrology still rounded today noon, OP labs and f/u appointment ordered. - CO2 26- bicarb gtt stopped Code(s): E87.20 - ACIDOSIS, UNSPECIFIED (6) Hypokalemia Current Visit: Yes Status: Acute Assessment & Plan: - K+ 3.4 replaced - trend 07/03 - resolved Code(s): E87.6 - HYPOKALEMIA (7) Compression fracture of thoracic vertebra Current Visit: Yes Status: Acute Assessment & Plan: - as seen on CT chest - Impression: 1. Negative pulmonary embolus. No acute cardiopulmonary abnormalities. 2. Chronic findings including pulmonary emphysema, pulmonary fibrosis/scarring, cirrhotic liver, splenomegaly, and old granulomatous disease. 3. Acute appearing T7-T9 compression fractures. Also osteopenia and remote T2 endplate fracture - F/U with neurosurgery OP pt has no c/o pain in thoracic region Code(s): S22.000A - WEDGE COMPRESSION FRACTURE OF UNSP THORACIC VERTEBRA, INIT (8) Thrombocytopenia Current Visit: Yes Status: Chronic Assessment & Plan: - Platelets 22 - Heparin stopped - known hx - Will need Op f/u with oncology 07/04 - platelets 26 - f/u appointment made with oncology (9) Cirrhosis of liver Current Visit: Yes Status: Acute Assessment & Plan: - 07/04 - US Liver Impression: 1. Abnormal gallbladder wall thickening without cholelithiasis or pericholecystic fluid. Rule out acalculus chronic cholecystitis. 2. Cirrhotic appearing liver without ascites. 3. Pancreatic head cystic mass better evaluated with CT abdomen with contrast exam. (10) Pancreatic mass Current Visit: Yes Status: Acute Assessment & Plan: - CT abd with contrast 07/04 Impression: 1. Nonspecific pancreatic head cyst as detailed. 2. Cirrhotic liver without ascites. Secondary findings related to portal hypertension including enlarged portal vein, splenomegaly, splenorenal varices, and distal paraesophageal varices. 3. Gallbladder wall thickening/enhancement better detailed on right upper quadrant sonogram. 4. Chronic findings including pulmonary emphysema, arteriosclerotic disease, and chronic bony findings. Code(s): K86.89 - OTHER SPECIFIED DISEASES OF PANCREAS (11) Abnormal findings on diagnostic imaging of gallbladder Current Visit: Yes Status: Acute Assessment & Plan: - will refer to surgery OP Code(s): R93.2 - ABNORMAL FINDINGS ON DX IMAGING OF LIVER AND BILIARY TRACT - Discharge Discharge Date: 07/04/23 Disposition: Home, Self-Care Condition: Stable Prescriptions: New Oseltamivir 75 mg [Tamiflu 75MG Capsule] 75 mg PO BID 2 Days #3 cap Folic Acid 1 mg [Folate 1 mg] 1 mg PO DAILY 30 Days #30 tablet Thiamine HCl 100 mg [Vitamin B-1 100 mg] 100 mg PO DAILY 30 Days #30 tablet Prednisone 20 mg [Deltasone 20 mg] 20 mg PO BID 5 Days #10 tablet Azithromycin 250 mg [Zithromax 250 MG TABLET] 250 mg PO ZPACK #6 tablet Albuterol Sulfate [Albuterol Sulfate Hfa] 8.5 gm IH Q4-6HPRN PRN 30 Days #1 inhaler PRN Reason: Shortness Of Breath/Wheezing Fluticasone/Salmeterol 500/50* [Advair 500-50 Diskus] 1 each IH BID 30 Days #1 inh Outpatient Orders: CBC Time Frame: 3 Weeks, Facility: [facility]. Hosp, Location: LABORATORY CMP Time Frame: 3 Weeks, Facility: [facility]. Hosp, Location: LABORATORY MAGNESIUM Time Frame: 3 Weeks, Facility: [facility]. Hosp, Location: LABORATORY Additional Instructions: -IF INTERESTED IN HELP FOR YOUR ALCOHOLISM- YOU CAN REACH OUT TO [facility] [address] [facility] AT [phone] -[facility] HAS BEEN SET UP FOR YOU AT HOME. THEY WILL CONTACT YOU TO ARRANGE A TIME TO COME SEE YOU. THEIR PHONE NUMBER IS [phone] IF YOU NEED ANYTHING BEFORE THEY CONTACT YOU. Follow up with: KHOA PADGETT [COURTESY STAFF] - 07/11/23 8:45 am RADHA APONTE MD [Primary Care Provider] - 07/10/23 10:00 am JEOVANY CACERES [CONSULTING PHYSICIAN] - 07/31/23 4:20 pm RADAMES WEAVER [COURTESY STAFF] - 07/14/23 8:20 am ([place] Office)
--- NOTE | 2023-07-04 13:36 | XRAY ---
Indication: Pancreatic mass on recent right upper quadrant sonogram. Multiple contiguous axial images obtained through the abdomen and pelvis using 80 cc Isovue 370 contrast. Comparison: None Lung bases demonstrates pulmonary emphysema and minimal subsegmental atelectasis/scarring. No infiltrate or effusion. Heart not enlarged. Incidental distal paraesophageal varices. Noncontrasted stomach and bowel loops appear nonobstructed with normal appendix. Cirrhotic appearing liver without ascites. Prominent main portal vein up to 2 cm diameter along with splenorenal varices and 16.4 cm splenomegaly favor portal hypertension. Head of pancreas demonstrates 1.8 x 1.6 cm well-circumscribed cystic mass. No other focal solid/cystic pancreatic mass or abnormal pancreatic ductal dilatation. Gallbladder wall thickening/enhancement without gallstones. No free air. Remaining liver, gallbladder, pancreas, spleen, adrenal glands, kidneys, ureters, and bladder are unremarkable. Mild scattered aortoiliac calcifications. No AAA or pathologic retroperitoneal lymphadenopathy. Osseous structures intact with mild degenerative changes throughout thoracolumbar spine, tiny multilevel thoracic Schmorl nodes, and incompletely visualized old right proximal femur fracture with orthopedic hardware. No ventral or inguinal hernias. Impression: 1. Nonspecific pancreatic head cyst as detailed. 2. Cirrhotic liver without ascites. Secondary findings related to portal hypertension including enlarged portal vein, splenomegaly, splenorenal varices, and distal paraesophageal varices. 3. Gallbladder wall thickening/enhancement better detailed on right upper quadrant sonogram. 4. Chronic findings including pulmonary emphysema, arteriosclerotic disease, and chronic bony findings.
--- NOTE | 2023-07-04 13:48 | CONS ---
CONSULT DATE: 07/04/2023 REASON FOR CONSULT: Hypernatremia. HISTORY: The patient is a 62-year-old gentleman who has history of cirrhosis, COPD, has chronic alcohol and tobacco abuse apparently presented to the hospital for feeling poorly for a few days having fever, not feeling well, had one episode of vomiting. No diarrhea. No chest pain. He had some shortness of breath. On evaluation, he was found to have influenza A. He was admitted to the hospital. He was also found to have low sodium, low hemoglobin and platelets. He had low bicarb. He was admitted and our service was consulted. The patient denies any vomiting or diarrhea at this time. He has some shortness of breath. He is starting to feel somewhat better. He denies any abdominal pain, no chest pain. He had some shortness of breath. No leg swelling. Denies any urinary difficulties. REVIEW OF SYSTEMS: Shortness of breath. No swelling. Some generalized weakness. No active vomiting or diarrhea. All other systems were reviewed and negative except as stated above. PAST MEDICAL HISTORY: COPD. Cirrhosis. Thrombocytopenia. PAST SURGICAL HISTORY: Skin cancer removal. Right hip surgery. MEDICATIONS: The patient does not take any home medications. ALLERGIES: CODEINE. SOCIAL HISTORY: Use of alcohol every day and smokes every day. Denies illicit substance abuse. FAMILY HISTORY: Denies any history of kidney disorders/problems in the family. PHYSICAL EXAMINATION: The patient is alert, oriented, not in any acute distress. Vital signs reviewed at bedside. VITAL SIGNS: Temperature 98.5F, pulse rate 86, respiratory rate 16, blood pressure 152/70. Saturating 95% on room air. HEENT: Head normocephalic. Eyes nonicteric, positive pallor. ENT mucosa moist. NECK: No JVD. Trachea midline. CHEST: Bilateral rhonchi, bilateral wheeze. No rales. No respiratory distress. CVS: Appears regular. EXTREMITIES: No peripheral edema. ABDOMEN: Soft, nontender, positive bowel sounds. No palpable edema. NEUROLOGIC: Awake, alert, oriented x3. Following commands and answering all questions appropriately. PSYCHIATRIC: Appropriate mood and affect. SKIN: Warm and dry. LAB DATA AND TESTS: Yesterday, 07/03/2023, hemoglobin 9.4, WBC 2.0, PLT count 22,000. Sodium 132, potassium 4.1, bicarb 15, BUN 12, creatinine 0.6. CT scan of the chest showed negative pulmonary embolism, chronic findings of pulmonary emphysema, pulmonary fibrosis, scarring, cirrhotic liver, splenomegaly. ASSESSMENT AND PLAN: 1) Hyponatremia. Likely combination of dehydration, pulmonary issues and cirrhosis. Sodium is staying above 130 and will continue to monitor. 2) Metabolic acidosis. Nonanion gap hyperkalemic likely due to GI issues this has improved with bicarb. Bicarb drip has been started and I will continue to monitor. 3) Pancytopenia with anemia, thrombocytopenia, leukopenia likely due to alcohol abuse. 4) Splenomegaly. Management per primary team. 5) Influenza A and COPD. Management per primary team. 6) Cirrhosis, chronic. Management per primary team. 7) Tobacco and alcohol abuse. The patient counseled. Thank you for this consultation. Please do not hesitate to contact me if there are any questions.
[2023-07-05 13:08] LABS: HBsAg Screen Negative (Negative); HCV Ab Non Reactive (Non Reactive); Hep A Ab, IgM Negative (Negative); Hep B Core Ab, IgM Negative (Negative)
== END 2023-07-04 15:58 | disposition home or self-care (01) ==
LOC: ED 14:41 → MED SURG 19:45
PROVIDERS: ADMIT Internal Medicine Nephrology; ATTEND Internal Medicine Nephrology
DX: J10.1 Influenza due to other identified influenza virus with other respiratory manifestations (principal); F10.10 Alcohol abuse, uncomplicated; J44.1 Chronic obstructive pulmonary disease with (acute) exacerbation; E87.1 Hypo-osmolality and hyponatremia; E87.20 Acidosis, unspecified; E87.6 Hypokalemia; S22.000A Wedge compression fracture of unspecified thoracic vertebra, initial encounter for closed fracture; D69.6 Thrombocytopenia, unspecified; K74.60 Unspecified cirrhosis of liver; K86.89 Other specified diseases of pancreas; R93.2 Abnormal findings on diagnostic imaging of liver and biliary tract; D61.818 Other pancytopenia; F17.200 Nicotine dependence, unspecified, uncomplicated; Z85.828 Personal history of other malignant neoplasm of skin; Z20.828 Contact with and (suspected) exposure to other viral communicable diseases; Z59.00 Homelessness unspecified
CPT/HCPCS: 0241U; 36000; 36415; 71046; 71260; 74177; 76705; 80048; 80053; 80074; 81001; 82550; 82607; 82728; 82746; 83540; 83550; 83735; 84100; 84132; 84207; 84484; 85007; 85025; 85027; 85379; 87040; 87086; 93005; 93041; 93268; 94640; 94760; 94762; 96365; 96374; 99285; J0456; J0696; J1644; J2060; J2920; J2930; Q3014; A9270-GY; G0378

== ENCOUNTER 2023-07-07 18:32 | Emergency (ER) | payer MEDICARE ==
--- NOTE | 2023-07-07 18:44 | ERPHSYRPT ---
- History of Present Illness Time Seen by Provider: 07/07/23 18:43 Source: patient, EMS Exam Limitations: clinical condition Physician History: This is a 62-year-old white male patient of Dr. Aponte who is brought into the emergency department by the ambulance service and c-collar. Patient states that he fell hitting his head in the kitchen then falling to the floor after seizure onset. Patient is a daily smoker cigarettes. He does have a history of COPD, seizure disorder, fibromyalgia, alcohol abuse, chronic renal failure, cirrhosis, gastroesophageal reflux disease and encephalopathy. Occurred: just prior to arrival Reason for Fall: fell from standing pos (Acute onset of seizure) Injuries/Pain Location: head (Left forehead abrasion), face (Small abrasion nasal bridge) Loss of Consciousness: brief (seconds), seizure Quality: aching Severity of Pain-Max: moderate Severity of Pain-Current: mild (To moderate) Associated Symptoms (Fall): denies symptoms, headache, neck pain Allergies/Adverse Reactions: codeine Allergy (Verified 07/07/23 18:45) Hx Tetanus, Diphtheria Vaccination/Date Given: No Hx Influenza Vaccination/Date Given: No Hx Pneumococcal Vaccination/Date Given: Yes Travel Risk - International Travel Have you traveled outside of the country in past 3 weeks: No - Vaccine Status Have you recieved a Covid-19 vaccination: Yes Panel Maker: Unknown - Vaccination Dates Dates if Unknown: ? - Review of Systems Constitutional: No Symptoms Eyes: No Symptoms Ears, Nose, & Throat: No Symptoms Respiratory: No Symptoms Cardiac: No Symptoms Abdominal/Gastrointestinal: No Symptoms Genitourinary Symptoms: No Symptoms Musculoskeletal: Fall, Injury (Left hip), No Deformity Skin: No Symptoms Neurological: Headache Psychological: No Symptoms Endocrine: No Symptoms Hematologic/Lymphatic: No Symptoms Immunological/Allergic: No Symptoms All Other Systems: Reviewed and Negative - Past Medical History Pertinent Past Medical History: Yes Neurological History: No Pertinent History ENT History: No Pertinent History Cardiac History: Hypertension Respiratory History: COPD Endocrine Medical History: No Pertinent History Musculoskeletal History: Fibromyalgia, Fractures, Osteoarthritis GI Medical History: Cirrhosis, Esophageal Disorder, GERD Other Medical History: Right femur fracture, esophageal varices without bleeding, anemia, alcohol abuse, encephalopathy, cardiomyopathy, kidney failure, skin cancer - Past Surgical History Past Surgical History: Yes Neuro Surgical History: No Pertinent History Cardiac: No Pertinent History Respiratory: No Pertinent History Gastrointestinal: No Pertinent History Genitourinary: No Pertinent History Musculoskeletal: Other Male Surgical History: No Pertinent History Other Surgical History: skin cancer cut off. right hip surgery - Social History Smoking Status: Current every day smoker How long have you smoked: 40 years Exposure to second hand smoke: No Drug Use: none Patient Lives Alone: No (Envive) - Nursing Vital Signs Nursing Vital Signs: Initial Vital Signs Temperature 97.2 F 07/07/23 18:48 Pulse Rate 67 07/07/23 18:48 Respiratory Rate 19 07/07/23 18:48 Blood Pressure 158/86 07/07/23 18:48 O2 Sat by Pulse Oximetry 96 07/07/23 18:48 Pain Scale Pain Intensity 6 - Cash Coma Score Best Eye Response ([place]): (4) open spontaneously Best Verbal Response ([place]): (5) oriented Best Motor Response ([place]): (6) obeys commands Cash Total: 15 - Physical Exam General Appearance: no apparent distress, alert, anxiety Head Injury: tenderness (Patient site left forehead) Eye Exam: PERRL/EOMI, eyes nml inspection ENT Exam: other (Region nasal bridge) Neck Exam: c-collar in place Respiratory/Chest Exam: normal breath sounds, No chest tenderness, No respiratory distress, No ecchymosis, No crepitus Cardiovascular Exam: normal heart sounds, regular rate/rhythm Gastrointestinal Exam: soft, normal bowel sounds, No tenderness Rectal Exam: not done Back Exam: normal inspection, normal range of motion, No CVA tenderness, No vertebral tenderness Extremity Exam: normal inspection, normal range of motion, capillary refill <3 sec, pelvis stable Neurologic Exam: alert, oriented x 3, cooperative, 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 Level of complexity and the workup performed is based on review of the patient's past medical history, review of the patient's medication list, review of patient drug allergy list, history present illness and physical findings on examination. This patient's workup includes CT scan of the head and cervical spine both without contrast. We will also x-ray the pelvis and left hip. These are the patient's complaints of pain at this time. 07/07/23 20:[address] scan of the cervical spine without contrast was interpreted by the radiologist. There are no comparison films. There was mild motion artifact. There is C4-C7 degenerative disc disease present. There is moderate bilateral carotid calcifications present. This study is negative for acute fracture or subluxation. CT scan of the head without contrast was interpreted by the radiologist and I reviewed the impression. Impression states nonacute senile brain. X-ray of the left hip and pelvis was interpreted by me. I do not appreciate any type of acute fracture or dislocation present in either of the left hip or pelvis. 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 Aponte's office tomorrow, 07/08/2023, at 9 AM to make arrangements for follow-up appointment in the next 3 days for further evaluation and management of your episodes of seizure and falls. May use Tylenol for pain control. Keep all abrasion sites clean daily with soap and water and may apply a thin layer of antibiotic ointment to them each day.
[2023-07-07 18:55] VITALS: TEMP 97.2
[2023-07-07 20:25] VITALS: BP 154/83; PULSE 65; RESP 18; O2SAT 98
--- NOTE | 2023-07-08 08:35 | XRAY ---
Indication: Head injury following fall. Seizure. Multiple contiguous axial images obtained through the head without contrast. Comparison: None Age-appropriate global atrophy and mild periventricular degenerative micro-ischemia. No acute intracranial hemorrhage, abnormal extra-axial fluid collection, or mass effect. Fourth ventricle is midline without hydrocephalus. Bony calvarium intact. Visualized paranasal sinuses and mastoid air cells are clear. Impression: Nonacute senile brain.
--- NOTE | 2023-07-08 08:36 | XRAY ---
Indication: Head injury following fall. Seizure. Multiple contiguous axial images obtained through the cervical spine. Sagittal and coronal reformatted images obtained. Comparison: None Several images are slightly degraded by motion artifact. Osseous structures demineralized. Axial images negative for acute fracture, suspicious bony lesions, or spinal canal stenosis. Minimal/mild C4-C7 degenerative endplate spurring. Facets are symmetric. Sagittal and coronal reformatted images demonstrates normal alignment. C4-C7 disc space narrowing. No acute compression fracture, subluxation, or jumped facet. Normal appearing craniocervical junction. Visualized noncontrasted soft tissues demonstrates moderate bilateral carotid calcifications. Lung apices demonstrates pulmonary emphysema. Impression: 1. Motion artifact. 2. Negative acute fracture/subluxation. 3. Osteopenia, C4-C7 degenerative changes, bilateral carotid calcifications, and pulmonary emphysema.
--- NOTE | 2023-07-08 08:45 | XRAY ---
Indication: Pain following fall. Comparison: None 2 view left hip demonstrates osteopenia and moderate scattered vascular calcifications. No other bony, articular, or soft tissue abnormalities.
== END 2023-07-07 20:37 | disposition home or self-care (01) ==
LOC: ED 18:32
DX: R56.9 Unspecified convulsions (principal); S00.31XA Abrasion of nose, initial encounter; S00.81XA Abrasion of other part of head, initial encounter; W18.39XA Other fall on same level, initial encounter; Y92.000 Kitchen of unspecified non-institutional (private) residence as the place of occurrence of the external cause; I12.9 Hypertensive chronic kidney disease with stage 1 through stage 4 chronic kidney disease, or unspecified chronic kidney disease; N18.9 Chronic kidney disease, unspecified; Z72.0 Tobacco use
CPT/HCPCS: 70450; 72125; 73502; 99283